=== PATIENT | male | born 1960 | race African-American/Black ===

== ENCOUNTER 2019-05-29 16:47 | Inpatient (IN) ==
[2019-05-29] MEDS ORDERED: Dextrose Gel 15 GM/37.5 ML TUBE PO PRN ×2 (20:30)
[2019-05-29] MEDS ORDERED: D5% in Water 1,000 ML IVC PRN (20:30)
[2019-05-29] MEDS ORDERED: *HR* Dextrose 50 % in Water (Syg) 50 ML SYRINGE IVP PRN (20:30)
[2019-05-29] MEDS ORDERED: *HR* HYDROcodone/Acet 5/325 mg TABLET PO PRN (20:30)
[2019-05-29] MEDS ORDERED: Naloxone 0.4 MG/ML INJ IVP PRN (20:30)
[2019-05-29] MEDS ORDERED: Acetaminophen 325 MG TABLET PO PRN (20:30)
--- NOTE | 2019-05-29 20:30 | Internal Med History&Physical ---
<Hannah Real Cuong - Last Filed: 05/29/19 22:41> Date of Encounter: 05/29/19 Time of Encounter: 20:00 Internal Medicine - H&P: HPI Chief complaint: osteomyelitis History of present illness: Mr. Carter is a 58 year old male with PMH of insulin dependent diabetes type 2, and peripheral neuropathy presents from [place] with wound on plantar surface of left hallux. Patient states he has had a chronic wound on the foot for about a year now which was on his way to healing and he is being followed by podiatry physician Dr. Campbell here at [facility]. Patient states he recently moved into a new place where he cleaned the tub with a bleach-type substance and took a shower. He believes the bleach may have torn down his skin and lead to the opening of his wound. He attempted to care for the wound within the past week with Dial soap, and keep The wound clean and dry although within the past few days patient noticed his foot becoming swollen. Patient noticed purulent drainage from the wound and it becoming malodorous. Patient also noticed increasing pain of the wound up to patient's de la cruz. Patient states the pain is about a 9 out of 10. Which prompted his visit to [place] ED. His last visit to outpatient podiatry was 05/14/19 which does indicated his wound contained granulation tissue. Patient is admitted for concerns of osteomyelitis. Past Med Surg Social Fam HX - Past Medical History Medical history: diabetes, hyperlipidemia, hypertension Additional medical history: neuropathy Psychiatric history: depression - Past Surgical History Surgical History: other (Tonsillectomy) - Social History Smoking Status: Current every day smoker Smokeless Tobacco Status: No Alcohol use: occasionally Drug use: none Internal Medicine - H&P: Meds Novolog Mix 70-30 Flexpen Syrn 5 - 10 units SQ ACHS 08/07/17 [History] Percocet 10-325 mg Tablet 1 tab PO Q6H PRN 08/07/17 [History] Vitamin D 08/07/17 [History] Insulin Lispro Protamin/Lispro [Humalog Mix 75-25 Vial] 45 unit SQ BID 08/08/17 [History] Albuterol Sulfate [Albuterol Inhaler] 1 puff IH PRN PRN 01/29/19 [History] Gabapentin [Neurontin] 600 mg PO TID 01/29/19 [History] Leucovorin/Pyridox/Mecobalamin [Folinic-Plus Caplet] 1 PO DAILY 01/29/19 [History] Losartan Potassium 100 mg PO DAILY 01/29/19 [History] Vit D2 60,000 50,000 units PO 2XW 01/29/19 [History] Amitriptyline HCl 50 mg PO HS 05/29/19 [History] DULoxetine [Cymbalta] 30 mg PO DAILY 05/29/19 [History] Sildenafil Citrate [Revatio] 20 mg PO PRN PRN 05/29/19 [History] Vitamin E 100 unit PO DAILY 05/29/19 [History] Allergy/AdvReac Type Severity Reaction Status Date / Time No Known Allergies Allergy Verified 05/29/19 13:42 All Systems PM: A 10-system review of systems was performed and is negative for pertinent findings except as documented above in the HPI. Review of systems: Constitutional: Denies Fever, Chills, Headache, Dizziness Respiratory: Denies Shortness of breath, Chronic cough, hemoptysis, Dyspnea at rest, or activity Cardiovascular: Denies Chest pain, Syncope, Peripheral edema , palpitations Gastrointestinal: Denies hematochezia, Abdominal pain, nausea, vomiting Genitourinary: Denies Painful urination, hematuria, urinary retention Endocrine: denies unintentional Significant weight changes Skin: Denies rashes, or unexplained bruising - Constitutional Vitals: Temp Pulse Resp BP Pulse Ox 97.8 F 85 16 145/98 85 05/29/19 19:52 05/29/19 19:52 05/29/19 19:52 05/29/19 19:52 05/29/19 19:52 Exam: Gen: alert/oriented, no acute distress. Head: atraumatic, normocephalic. ENT: no oropharyngeal erythema, mucous membranes moist, Neck: No thyromegaly appreciated. Neck supple no cervical lymphadenopathy. Resp: CTAB, no wheezing, rhonchi, or rhales. CV: RRR, Normal S1 and S2. No murmur, gallops, or rubs. GI/Abdominal exam: bowel sounds throughout,obese, soft, non-tender, non- distended; no hepatosplenomegaly Skin: no rashes, or bruising. Ext: plantar surface of L hallux contained 1 1/2cm wound with mild granulation tissue, malodorous with pustular drainage. Left foot edematous and tender up to mid de la cruz. sensation decreased in LE b/l, strength 5/5 b/l UE and LE. pulses +2/4 bilaterally UE and LE. Neuro: no focal deficits, cooperative with exam. - Assessment and Plan (1) Osteomyelitis Current Visit: Yes Status: Acute Assessment and plan: Patient is a 58Y male with Pmh of insulin dependent DM and peripheral neuropathy who presented to the ED at [place] with c/o wound infection. Patient has been dealing with a chronic wound on the dorsal aspect of his L hallux for about a year. This week the wound reopened and has become painful, purulent, and malodorous. Patient denies fevers, Headaches, nausea, vomiting, diarrhea, or myalgia. Due to this recent change in his wound there is concern for Osteomyelitis. Plan: - Obtain MRI of LT foot - Obtain bone biopsy of foot to confirm osteomyelitis infection. - Resume broad spectrum antibiotics (vancomycin) in a.m once bone biopsy has been completed. - Consult Podiatry as patient is a podiatry patient at [facility], and may need I/D of wound. - Will continue to monitor for leukocytosis or fever. - Obtain CBC, CMP in am. Qualifiers: Osteomyelitis type: other acute Osteomyelitis location: foot Laterality: left Qualified Code(s): M86.172 - Other acute osteomyelitis, left ankle and foot (2) Diabetes mellitus Current Visit: Yes Status: Acute Assessment and plan: Patient is currently an insulin dependent diabetic. Plan: - Will maintain blood glucose with SSI before and after meals. - NPO after midnight in case intervention is needed for infection. - Q6H Accucheck after midnight. - Q6H SSI after midnight while NPO (3) Hypertension Current Visit: Yes Status: Acute Assessment and plan: Continue Hypertensive medications: - Losartan 100mg Daily. Qualifiers: Hypertension type: essential hypertension Qualified Code(s): I10 - Essential (primary) hypertension (4) Depression Current Visit: Yes Status: Chronic Assessment and plan: Continue come medications: - Amitriptyline HCL 50mg PO HS - Duloxetine 30 mg PO Daily Qualifiers: Depression Type: major depressive disorder Major depression recurrence: recurrent Qualified Code(s): F33.0 - Major depressive disorder, recurrent, mild (5) DVT prophylaxis Current Visit: Yes Status: Acute Assessment and plan: Patient may need to undergo I&D for wound care. - SCDs for DVT prophylaxis. - Time Spent With Patient Total time spent is greater than 50% in coordination of care (as documented) at patient's floor/unit and/or counseling patient: <Sherry Hunt - Last Filed: 05/30/19 00:31> Date of Encounter: 05/30/19 Internal Medicine - H&P: HPI History of present illness: Mr. Carter is a 58 year old male All Systems PM: A 10-system review of systems was performed and is negative for pertinent findings except as documented above in the HPI. - Constitutional Vitals: Temp Pulse Resp BP Pulse Ox 98.3 F 88 16 110/68 93 05/29/19 23:05 05/29/19 23:05 05/29/19 23:05 05/29/19 23:05 05/29/19 23:05 - Time Spent With Patient Total time spent is greater than 50% in coordination of care (as documented) at patient's floor/unit and/or counseling patient: - Attending Attestation Patient seen and examined independently, including review of objective data including labs. I agree with plan of care as documented below by the resident with the following comments: 58-year-old male with uncontrolled insulin-dependent type 2 diabetes with peripheral neuropathy and chronic left hallux ulcer comes to the ED for acute worsening patient has had multiple episodes of oral antibiotic outpatient with intermittently improving the longest duration being 4/5 days. Patient reports worsening usually occurs after exposure to water.on examination: No mass, crepitus or pain out of proportion. Patient admitted for left foot wound with suspected osteomyelitis. ESR, CRP, MRI pending. Podiatry consultation for bone biopsy and thus held antibiotics for better yield.
[2019-05-29] MEDS ORDERED: Insulin LISPRO 300 UNITS/3 ML VIAL SQ SCH (20:38)
[2019-05-29] MEDS ORDERED: Insulin DETEMIR 100 UNIT/ML X5UNITS SQ SCH (21:00)
[2019-05-29] MEDS ORDERED: Gadolinium Contrast Agent (WT Based) IV PRN (21:52)
[2019-05-29 21:55] LABS: INR 1.1; Prothrombin Time 12.2 Seconds (9.4-12.1)
[2019-05-29] MEDS: Gabapentin 300 MG CAPSULE PO SCH (23:04)
[2019-05-30] MEDS: Insulin LISPRO 300 UNITS/3 ML VIAL SQ SCH ×5 (00:49→23:44)
[2019-05-30 05:48] LABS: Basophils # 0.1 K/mcL (0.0-0.2); Basophils % 0.9 %; Eosinophils # 0.2 K/mcL (0.0-0.6); Eosinophils % 3.2 %; Hematocrit 39.2 % (37.5-50.1); Hemoglobin 12.5 g/dL (12.9-16.9); Immature Granulocytes % 0.3 % (0-4); Lymphocytes # 2.4 K/mcL (0.6-4.6); Lymphocytes % 33.9 %; Mean Corpuscular HGB Conc 31.9 g/dL (31.6-35.5); Mean Corpuscular Volume 84.7 fL (83.0-100.0); Monocytes # 0.7 K/mcL (0.0-1.3); Monocytes % 10.3 %; Neutrophils # 3.6 K/mcL (1.6-8.9); Platelet Count 438 K/mcL (140-400); Red Blood Count 4.63 M/mcL (4.19-5.50); Red Cell Distribution Width 14.7 % (11.5-14.5); Segmented Neutrophils % 51.4 %
[2019-05-30 06:15] LABS: Alanine Aminotransferase 17 Units/L (7-52); Albumin 3.7 g/dL (3.5-5.7); Albumin/Globulin Ratio 1.1 (1.1-2.2); Alkaline Phosphatase 79 Units/L (34-104); Aspartate Amino Transferase 17 Units/L (13-39); BUN/Creatinine Ratio 15 (6-26); Bilirubin,Total 0.4 mg/dL (0.3-1.0); Blood Urea Nitrogen 13 mg/dL (6-20); Calcium 9.6 mg/dL (8.6-10.3); Carbon Dioxide 26 mEq/L (23-29); Chloride 98 mEq/L (98-107); Globulin 3.5 g/dL (2.4-3.5); Glucose 223 mg/dL (70-105); Osmolality,Calculated 289 (280-300); Potassium 4.1 mEq/L (3.5-5.1); Sodium 136 mEq/L (136-145); Total Protein 7.2 g/dL (6.4-8.9); eGFR For African Americans > 60 (> 60); eGFR For Non-African Americans > 60 (> 60)
--- NOTE | 2019-05-30 11:58 | Podiatry Consult Note ---
Date of Encounter: 05/30/19 Time of Encounter: 11:53 Assessment and Plan (1) Diabetic ulcer of toe Current visit: Yes Status: Acute Assessment: Sloan grade III ulceration to left great toe 05/14/19 VASQUEZ right 0.97 left 0.7 05/14/19 TCPO2 consistent with healing Wound cultures pending, prelim with few gram negative rods and gram positive cocci Malodorous CT of left foot suggestive for OM MRI showed OM of distal phalanx WBC 7.0, afebrile ESR 93, CRP 60 HGB A1C 10.7 Reports calf pain with squeeze Plan: Venous duplex stat, r/o dvt Vascular consultation, will plan for amputation if no vascular intervention planned Keep NPO Bedside debridement completed, see below Local wound care Tight glycemic control per primary team Informed consent obtained timeout performed. Patient placed in recumbent position. Left foot and ankle prepped and draped usual manner. Under sterile technique and using sterile instrumentation surgical excisional wound debridement was carried out with #15 scalpel blade and pickup to remove all devitalized tissue of the left hallux wound. No bleeding noted. Purulent drainage noted, slough noted.. Debridement was carried down to the subcutaneous tissue. Cleansed with 0.9 NS. Painted periwound with betadine. Covered with adaptic, 4x4 dry gauze, and kerlix. Secured with JULIO. Discussed left great toe amputation. Nature of the procedure, risks versus benefits, potential complications, consequences of surgery, and condition discussed. All questions and concerns addressed. Consent signed and placed in chart. Qualifiers: Diabetes mellitus type: type 2 Laterality: left Non-pressure ulcer stage: with fat layer exposed Qualified Code(s): E11.621 - Type 2 diabetes mellitus with foot ulcer; L97.522 - Non-pressure chronic ulcer of other part of left foot with fat layer exposed (2) Osteomyelitis Current visit: Yes Status: Suspected See above Qualifiers: Osteomyelitis type: subacute Osteomyelitis location: foot Laterality: left Qualified Code(s): M86.272 - Subacute osteomyelitis, left ankle and foot History of Present Illness Chief complaint: OM HPI: Mr. Carter is a 58 year old male who presented to the [facility] yesterday with complaints of purulent drainage from left diabetic ulcer. Patient is known to podiatry and follows with Dr. Campbell in wound care center. Briefly Mr. Carter is a 58-year-old man who states 1 month ago he took a bath in which bleach was in the tub. He reports he he does not believe other bleach was removed and has had an ulceration to left great toe ever since. Patient has been following in wound care center. Previous ABIs were completed right 0.97, left 0.7. TC PO2 levels were completed and showed consistent with healing. Patient states that about 3 days ago he began to have drainage and foul odor from wound. Denies any fevers, chills, nausea, vomiting, or diarrhea. Denies any chest pain, or shortness of breath. Reports calf pain. WBC 7.0, ESR 93, hemoglobin A1c 10.7, wound cultures obtained on 05/29/19 are still pending preliminary showed a few gram-positive cocci and gram-negative rods. Foot CT was suggestive for osteomyelitis. MRI showed osteomyelitis of first distal phalanx. Discussed possible surgical intervention. Patient is agreeable. No other questions or concerns at this time Past Med Surg Social Fam HX - Past Medical History Medical history: diabetes, hyperlipidemia, hypertension Additional medical history: neuropathy Psychiatric history: depression - Past Surgical History Surgical History: tonsillectomy - Social History Smoking Status: Current every day smoker Smokeless Tobacco Status: No Alcohol use: occasionally Drug use: none Medications and Allergies Cholecalciferol (Vitamin D3) [Vitamin D] 50,000 unit PO TUFR 08/07/17 [History] Oxycodone HCl/Acetaminophen [Percocet 10-325 mg Tablet] 1 tab PO Q6H PRN 08/07/17 [History] Insulin Lispro Protamin/Lispro [Humalog Mix 75-25 Vial] 45 unit SQ BID 08/08/17 [History] Albuterol Sulfate [Albuterol Inhaler] 1 puff IH Q4-6H PRN 01/29/19 [History] Gabapentin [Neurontin] 600 mg PO TID 01/29/19 [History] Leucovorin/Pyridox/Mecobalamin [Folinic-Plus Caplet] 1 tab PO DAILY 01/29/19 [History] Losartan Potassium 100 mg PO DAILY 01/29/19 [History] DULoxetine [Cymbalta] 30 mg PO DAILY 05/29/19 [History] Sildenafil Citrate [Revatio] 20 mg PO PRN PRN 05/29/19 [History] Vitamin E 100 unit PO DAILY 05/29/19 [History] Amitriptyline [Elavil] 50 mg PO HS PRN 05/30/19 [History] Insulin ASPART [Novolog Flexpen] 5 - 10 units SQ ACHS 05/30/19 [History] Allergy/AdvReac Type Severity Reaction Status Date / Time No Known Allergies Allergy Verified 05/30/19 14:19 All Systems Reviewed: The remainder of the systems were reviewed and are negative - Constitutional Constitutional: no fever(s) - Cardiovascular Cardiovascular: other (pedal ulcer), no chest pain - Respiratory Respiratory: no dyspnea - Musculoskeletal Musculoskeletal: numbness Physical Exam - Constitutional Vitals: Temp Pulse Resp BP Pulse Ox 98.9 F 76 15 145/94 97 05/30/19 11:19 05/30/19 11:19 05/30/19 11:19 05/30/19 11:05/30/19 11:19 Exam: Constitiutional: Alert and oriented x 3. Well nourished. No acute distress noted Vascular: 1/4 DP/PT LLE, CFT <3 sec to all digits LLE, warm to warm from tibia to toes LLE, calf pain with squeeze LLE Neurologic: Absent sensation to touch, normal plantar response Dermatologic: Sloan stage III ulcer noted to left hallux, maloudorus, purulent drainage, no lymphangitis, no cellulitis noted Musculoskeletal: 4/5 muscle strength and normal tone LLE. Results - Labs Result Diagrams: 05/30/19 04:23 05/30/19 04:23 Labs: Abnormal lab results Hgb 12.5 g/dL (12.9-16.9) L 05/30/19 04:23 MCH 27.0 pg (28.0-33.3) L 05/30/19 04:23 RDW 14.7 % (11.5-14.5) H 05/30/19 04:23 Plt Count 438 K/mcL (140-400) H 05/30/19 04:23 ESR 93 mm/hr (0-10) H 05/30/19 04:23 PT 12.2 Seconds (9.4-12.1) H 05/29/19 20:59 Glucose 223 mg/dL (70-105) H 05/30/19 04:23 C-Reactive Protein 60 mg/L (Less than 10) H 05/30/19 04:23 H & H 05/30/19 Range/Units 04:23 Hgb 12.5 L (12.9-16.9) g/dL Hct 39.2 (37.5-50.1) % All other labs normal. - Diagnostic results Ankle/Foot MRI: report reviewed Ankle/Foot CT: report reviewed Consult Discharge Plan - Plan Referrals: Cody Pastrana MD [Primary Care Provider] - 06/17/19 3:15 pm Derrick Joyner MD [Partnered Physician] - 06/18/19 2:45 pm
[2019-05-30] MEDS: *HR* OxyCODONE/APAP 10/325 TABLET PO PRN ×2 (12:33→19:43)
[2019-05-30] MEDS: Nicotine 14 MG PATCH.TD24 TD SCH (14:36)
[2019-05-30] MEDS ORDERED: *HR* Heparin 10,000 UNIT/10 ML VIAL ONE ×2 (14:36→15:58)
[2019-05-30] MEDS ORDERED: 0.9 % Sodium Chloride 1,000 ML ONE (14:37)
[2019-05-30] MEDS ORDERED: Isovue-300 150 ML INFUS..BTL ONE (14:37)
[2019-05-30] MEDS ORDERED: *HR* FentaNYL (PF) 100 MCG/2 ML VIAL ONE ×2 (14:56→15:44)
[2019-05-30] MEDS ORDERED: *HR* Midazolam HCl 2 MG/2 ML VIAL ONE (14:56)
--- NOTE | 2019-05-30 15:01 | Vascular/Endovasc Consult Note ---
Date of Encounter: 05/30/19 Time of Encounter: 14:30 Assessment and Plan (1) PAD (peripheral artery disease) Current Visit: Yes Status: Chronic Patient has clinical findings suggesting bilateral superficial femoral artery disease. Because of the worsening status of the wound I recommended angiography and possible endovascular intervention for the left lower extremity. My suspicion is that he has a left superficial femoral artery occlusion. After revi ew of the issue the patient understands I recommendation and wishes to proceed. In order to expedite his medical care and to better control his foot infection We will make arrangements for his angiogram this afternoon. (2) Diabetic ulcer of toe Current Visit: Yes Status: Acute Patient has ulceration of the left first toe of unknown duration. Qualifiers: Diabetes mellitus type: type 2 Laterality: left Non-pressure ulcer stage: with fat layer exposed Qualified Code(s): E11.621 - Type 2 diabetes mellitus with foot ulcer; L97.522 - Non-pressure chronic ulcer of other part of left foot with fat layer exposed - History of Present Illness Consult date: 05/30/19 Consult reason: PAD/left toe wound Chief complaint: left toe wound History of present illness: Mr. Carter is a 58 year old male who was admitted yesterday via the emergency room for a left foot infection. The patient has a somewhat long history of injury and wound to the left first toe. As best I can determine this area was recently reinjured and for the past week the patient has had increasing symptoms. The patient has seen Dr. Campbell in the past. He has known diabetes. It is unknown as to what level his hemoglobin A1c is at the time of this dictation. The patient relates the problems to his left first toe going back to about a year ago when he was moving a refrigerator. He is also had experiences of having his foot and a bishop [place] when washing his dog and also having bleach and other material in a bathtub when he was taken a shower. The patient gives a somewhat indeterminate history for pre-morbid claudication. He has not had any previous endovascular or open surgical therapy for lower extremity vascular disease. The patient had noninvasive testing earlier this month which demonstrated an ankle-brachial index on the left of 0.7. Past Med Surg Social Fam HX - Past Medical History Medical history: diabetes, hyperlipidemia, hypertension Additional medical history: neuropathy Psychiatric history: depression - Past Surgical History Surgical History: tonsillectomy - Social History Smoking Status: Current every day smoker Smokeless Tobacco Status: No Alcohol use: occasionally Drug use: none Medications and Allergies Cholecalciferol (Vitamin D3) [Vitamin D] 50,000 unit PO TUFR 08/07/17 [History] Oxycodone HCl/Acetaminophen [Percocet 10-325 mg Tablet] 1 tab PO Q6H PRN 08/07/17 [History] Insulin Lispro Protamin/Lispro [Humalog Mix 75-25 Vial] 45 unit SQ BID 08/08/17 [History] Albuterol Sulfate [Albuterol Inhaler] 1 puff IH Q4-6H PRN 01/29/19 [History] Gabapentin [Neurontin] 600 mg PO TID 01/29/19 [History] Leucovorin/Pyridox/Mecobalamin [Folinic-Plus Caplet] 1 tab PO DAILY 01/29/19 [History] Losartan Potassium 100 mg PO DAILY 01/29/19 [History] DULoxetine [Cymbalta] 30 mg PO DAILY 05/29/19 [History] Sildenafil Citrate [Revatio] 20 mg PO PRN PRN 05/29/19 [History] Vitamin E 100 unit PO DAILY 05/29/19 [History] Amitriptyline [Elavil] 50 mg PO HS PRN 05/30/19 [History] Insulin ASPART [Novolog Flexpen] 5 - 10 units SQ ACHS 05/30/19 [History] Allergy/AdvReac Type Severity Reaction Status Date / Time No Known Allergies Allergy Verified 05/30/19 14:19 All Systems Review: The remainder of the systems were reviewed and are negative Exam Vital Signs, Last 4 Hours Temp Pulse Resp BP Pulse Ox 05/30/19 11:19 98.9 F 76 15 145/94 97 General: Present: Conversant, No Apparent Distress, Well developed, Well nourished HEENT: Present: Atraumatic, Normocephaly, Trachea midline Neck: Absent: JVD, Left Carotid bruit, Right Carotid bruit, Midline deformity Cardiac: Present: Reg Rate and Rhythm, Normal S1 and S2, No Murmur. Absent: Irregular Rhythm Lungs: Present: Normal Breath Sounds, No Wheeze, Rales, Rhonchi Neuro: Present: Alert and responsive, No focal deficits noted, Cranial nerves grossly intact Abdomen: Present: Soft, Non-tender, Other (Obese). Absent: Masses Vascular: Present: Pulse, absent (I do not palpate popliteal or pedal pulses on either side), Pulse, normal (Patient has palpable bilateral femoral pulses without bruit), Other (Patient has a foul order and drainage from the left first toe.). Absent: Bruit (There are no femoral or popliteal masses or bruits), Cyanosis, Edema Skin: Present: No rashes noted on visualized skin Consult Discharge Plan - Plan Referrals: Cody Pastrana MD [Primary Care Provider] - 06/17/19 3:15 pm Derrick Joyner MD [Partnered Physician] - 06/18/19 2:45 pm
--- NOTE | 2019-05-30 15:02 | Pre-Sedation Evaluation ---
Pre-sedation evaluation - Pre-sedation checklist Date of procedure: 05/30/19 Procedure: Peripheral angiogram Recent Vitals: Last Vital Signs Temp 98.9 F 05/30/19 11:19 Pulse 76 05/30/19 11:19 Resp 15 05/30/19 11:19 BP 145/94 05/30/19 11:19 Pulse Ox 97 05/30/19 11:19 Previous reaction to sedatives/anesthetics: No Possible difficult airway: No ASA Classification *see protocol: CLASS III-Severe systemic disease Plan of Care: Pt appropriate candidate for procedure/moderate/conscious sedation, Risks/benefits of procedure/sedation discussed w/ patient/family
[2019-05-30] MEDS: Gabapentin 300 MG CAPSULE PO SCH ×3 (15:39→21:13)
--- NOTE | 2019-05-30 16:01 | Procedure Note ---
Date of procedure: 05/30/19 Pre-op diagnosis: pad/left toe wound Post-op diagnosis: same Procedure: Abdominal aortogram Aortogram with bilateral lower extremity runoff Standard and drug coated balloon angioplasty of left superficial femoral artery occlusion Anesthesia: MAC Surgeon: Derrick Joyner Was there an engineering inspection assistant present: No Estimated blood loss (cc): 0 Specimen: 0 Condition: stable Disposition: floor (Patient will require 3 months of Plavix therapy. Initial dose given in catheter lab today.)
--- NOTE | 2019-05-30 16:37 | Internal Med Progress Note ---
Hospitalist Progress Note - Encounter Date of Encounter: 05/30/19 Time of Encounter: 16:31 - Subjective Interval History: No acute events overnight. Patient had bedside debridement of left big toe wound. He requests to be discharged soon so he can go back home to take care of his dog. I informed patient that I would discharge him as soon as it is safe to do so. He denies fever, nausea, vomiting and chills. - Exam Vitals: Temp Pulse Resp BP Pulse Ox 37.2 C 76 15 145/94 97 05/30/19 11:19 05/30/19 11:19 05/30/19 11:05/30/19 11:05/30/19 11: Exam: GENERAL: Not in distress. Alert and Oriented HEENT: EOMI, PERRLA MOUTH: Good oral hygiene NECK:No JVD, No lymph nodes. CHEST AND LUNGS: Normal breath sounds, no wheezes or crackles HEART: S1 and S2 normal, no murmurs ABDOMEN: Soft, nontender, no organomegaly SKIN: Normal color, no rashes, no lesions EXTREMITIES: Clean Surgical dressing over left foot NEUROLOGICAL: Normal cognition, normal motor and sensory exam. - Assessment and Plan (1) Diabetic ulcer of toe Current Visit: Yes Status: Acute Assessment and Plan: Patient presented with a large necrotic ulcer at the plantar surface of his left hallux. Podiatry has seen and done bedside debridement. MRI findings consistent with osteomyelitis Patient might have a possible left toe amputation. Podiatry and vascular on board. (2) Osteomyelitis Current Visit: Yes Status: Suspected Assessment and Plan: Foot MRI performed revealed osteomyelitis of the first distal phalanx with erosive changes of the first distal phalanx tuft Podiatry considering possible amputation of the left hallux Vascular consulted to evaluate lower extremity perfusion prior to procedure. (3) Diabetes mellitus Current Visit: Yes Status: Acute Assessment and Plan: Poorly controlled diabetes. HbA1c of 10.7 High-dose insulin sliding scale We will change premix insulin to ultra long-acting insulin during hospital stay Accu-Cheks Patient counseled on importance of compliance with medications. (4) Hypertension Current Visit: Yes Status: Acute (5) Obesity (BMI 30.0-34.9) Current Visit: Yes Status: Acute Assessment and Plan: Patient counseled on weight loss options available. (6) DVT prophylaxis Current Visit: Yes Status: Acute Assessment and Plan: SCD - Time Spent with Patient Total time spent is greater than 50% in coordination of care (as documented) at patient's floor/unit and/or counseling patient: Internal Medicine: Result - Labs CBC & Chem 7: 05/30/19 04:23 05/30/19 04:23 Labs: Short CBC 05/30/19 Range/Units 04:23 WBC 7.0 (4.3-11.1) K/mcL Hgb 12.5 L (12.9-16.9) g/dL Hct 39.2 (37.5-50.1) % Plt Count 438 H (140-400) K/mcL Neutrophils # 3.6 (1.6-8.9) K/mcL BMP 05/30/19 04:23 Sodium 136 Potassium 4.1 Chloride 98 Carbon Dioxide 26 BUN 13 Creatinine 0.85 Glucose 223 H Calcium 9.6 Liver Function 05/30/19 Range/Units 04:23 Total Bilirubin 0.4 (0.3-1.0) mg/dL AST 17 (13-39) Units/L ALT 17 (7-52) Units/L Alkaline Phosphatase 79 (34-104) Units/L Albumin 3.7 (3.5-5.7) g/dL - ABG Interpretation ABG results: PT/INR, D-dimer PT 12.2 Seconds (9.4-12.1) H 05/29/19 20:59 - Impressions Impressions Foot MRI 05/30/19 09:59 IMPRESSION: Large soft tissue ulceration involving the tip of the 1st digit extending to the level of bone with surrounding cellulitis and subcutaneous edema extending to the dorsal aspect of the foot. Osteomyelitis of the 1st distal phalanx with erosive changes of the 1st distal phalanx tuft. D/ / 05/30/2019 10:10:30 Cameron Pena MD / [facility] Interpreting Provider: Cameron Pena MD Consult Discharge Plan - Plan Referrals: Cody Pastrana MD [Primary Care Provider] - 06/17/19 3:15 pm Derrick Joyner MD [Partnered Physician] - 06/18/19 2:45 pm (1) Diabetic ulcer of toe Qualifiers: Diabetes mellitus type: type 2 Laterality: left Non-pressure ulcer stage: with fat layer exposed Qualified Code(s): E11.621 - Type 2 diabetes mellitus with foot ulcer; L97.522 - Non-pressure chronic ulcer of other part of left foot with fat layer exposed (2) Osteomyelitis Qualifiers: Osteomyelitis type: subacute Osteomyelitis location: foot Laterality: left Qualified Code(s): M86.272 - Subacute osteomyelitis, left ankle and foot (3) Diabetes mellitus Qualifiers: Diabetes mellitus type: type 2 Diabetes mellitus senior living insulin use: unspecified senior living insulin use status Diabetes mellitus complication status: with skin complications Diabetes mellitus complication detail: with foot ulcer Qualified Code(s): E11.621 - Type 2 diabetes mellitus with foot ulcer; L97.509 - Non-pressure chronic ulcer of other part of unspecified foot with unspecified severity (4) Hypertension Qualifiers: Hypertension type: essential hypertension Qualified Code(s): I10 - Essential (primary) hypertension
--- NOTE | 2019-05-30 17:03 | Invasive Diagnostic Lab Proc ---
Name: Manuel Carter Date of Study: 05/30/2019 Date: 1960 Ht: 193.0 in Medical Record#: [id number] Age: 58 Wt: 115 lb Gender: Male BSA: 2.45 Order #: [id number] BMI: 30.87 Physicians Performing MD: Derrick Joyner MD, FACS Referring MD: Referring MD: Staff Name Position Time In Kimberly Lauian RT (R) Scrub Jennifer Harrison RT (R) Monitor Xavier Nowak RN Laundry Machine Operator Indications Non-healing Ulcer Procedures Performed AORTOGRAPHY EXT Bilat S&I AORTOGRAPHY, ABDOMINAL S&I FEM/POPL REVAS W/TLA Pre-Procedure Checklist Informed consent is complete signed and on chart. H&P is on chart. ID band is on and ID verified with patient. Patient NPO for procedure The procedure was described for the patient and questions were answered. Blood Pressure: 132/89 ECG is on chart. Rhythm: NSR Plan of Care Patient will tolerate the procedure without complications. Adequate level of comfort will be maintained. Hemodynamics will remain stable Patient will recover from procedure without complications. Respiratory function will be maintained. Cardiac rhythm will remain stable. Patient temperature will be maintained. Patient and/or family have verbalized understanding of the procedure. Patient Education Chief Complaint/Reason for Test: Peripheral angiogram Developmental Category: Adult (18-64 years) Learning Barriers: None Education Needs: Procedure Education Method: Verbal Information Taught: Peripheral angiogram Educational Evaluation: Able to repeat information Intravenous Access Time IV Size Location DC'd Fluid/Drip Rate Units RN 15:03 20g 1 /" Patent On Arrival Lt Hand 0.9NaCl 25 ml/hr Allergies No Known Allergies steroids Vital Signs Time BP Systolic BP Diastolic HR O2 Sats ASA 03:06 PM 132 89 69 100 03:06 PM 03:21 PM 03:37 PM 03:01 PM 137 90 73 98 03:06 PM 132 89 79 100 03:11 PM 136 80 69 100 03:17 PM 135 75 74 100 03:21 PM 147 87 67 100 03:26 PM 140 92 64 100 03:31 PM 144 89 66 100 03:36 PM 137 88 67 100 03:41 PM 139 89 67 100 03:46 PM 134 78 63 93 03:52 PM 131 93 64 100 04:00 PM 127 89 71 95 04:27 PM 144 88 88 94 04:45 PM 140 95 85 98 Procedure Medications Time Medication Dose Units Method Route 03:04 PM Oxygen 2 L/min nasal cannula 03:05 PM Versed 1 mg Intravenous 03:10 PM Fentanyl 50 mcg Intravenous 03:12 PM Versed 1 mg Intravenous 03:13 PM Lidocaine 2% 10 ml Subcutaneous 03:32 PM Heparin 5000 units Intravenous 03:34 PM Fentanyl 50 mcg Intravenous 03:44 PM Fentanyl 50 mcg Intravenous 03:54 PM Plavix 150 mg Orally 03:58 PM Heparin 1000 units Intravenous ASA Classification: CLASS III- Severe systemic disease (i.e. prior AMI, diabetes with vascular complications, morbid obesity) Shreya Score Preprocedure Postprocedure Activity 2- Moves 4 extremities sustained head lift Activity 2- Moves 4 extremities sustained head lift Circulation 2- SBP +/= 20 points of pre-anesthetic level Circulation 2- SBP +/= 20 points of pre-anesthetic level Consciousness 2- Awake and alert oriented x 3 Consciousness 2- Awake and alert oriented x 3 O2 Saturation 2- Able to maintain O2 satruation of 92% on room air O2 Saturation 2- Able to maintain O2 satruation of 92% on room air Respiratory 2- Able to deep breathe and cough well Respiratory 2- Able to deep breathe and cough well Total Score 10 Total Score 10 Contrast: Isovue 300- 150ml Contrast Amount: 100 ml Fluoro Dose: 266 mGy Activated Clotting Time Time Drawn ACT (sec) 03:57 PM 188 Procedure Log Time Note Entered By 03:04 PM Pt arrived to dairy lab technician 1 at 15:04 [email or web address] 03:04 PM Physician arrived 15:04 oparker 03:04 PM Parth and donald completed [email or web address] 03:04 PM Sign in performed according to hospital policy. [email or web address] 03:04 PM Procedure start 15:04 oparker 03:04 PM ASA Class CLASS III- Severe systemic disease (i.e. prior AMI, diabetes with vascular complications, morbid obesity) oparker 03:04 PM Vic Lau RT (R) Position: Scrub Time in: 15:04 oparker 03:04 PM Jennifer Harrison RT (R) Position: Monitor Time in: 15:04 oparker 03:04 PM Xavier Nowak RN Position: Laundry Machine Operator Time in: 15:04 oparker 03:04 PM Case delayed: No oparker 03:04 PM Hair removed from procedure site in holding area using clippers. Bilateral groin prepped with Chloraprep by Xavier Nowak RN, then patient was draped. Skin intact. [email or web address] 03:04 PM 15:04 Oxygen at 2 L/min per nasal cannula by Xavier Nowak RN 03:05 PM 15:05 Versed 1 mg Intravenous Given by Xavier Nowak RN 03:06 PM Time: 15:06 Is patient comfortable and pain free?: Yes [email or web address] 03:06 PM Time: 15:06LOC: 4 = Oriented but drowsy [email or web address] 03:07 PM Patient charges- Angio tray pack, Pulse Oximetry and ACIST tubing and transducer [email or web address] 03:10 PM 15:10 Fentanyl 50 mcg Intravenous Given by Xavier Nowak RN 03:11 PM Time out perfomed [email or web address] 03:12 PM 15:12 Versed 1 mg Intravenous Given by Xavier Nowak RN 03:13 PM 15:13 10 ml Lidocaine 2% to right groin Subcutaneous Given By Derrick Joyner MD, FACS [email or web address] 03:13 PM Access obtained in the right femoral artery by percutaneous puncture. 5 Fr. 10 cm Terumo [place] sheath placed in right femoral artery [email or web address] 03:13 PM 0.035 145cm J-wire wire utilized to assist with catheter placement [email or web address] 03:13 PM 5Fr Short pigtail catheter inserted over the wire [email or web address] 03:14 PM 3 mls contrast injected into Abd AO. [email or web address] 03:14 PM Abdominal aorta angiography performed in AP contrast injected 10/25 mls. [email or web address] 03:16 PM Catheter repositioned for runoff. [email or web address] 03:17 PM Setting up for stepping [email or web address] 03:17 PM Abdominal angiogram with runoff completed: 6 ml/sec for a total of 60 mls [email or web address] 03:21 PM Time: 15:06LOC: 4 = Oriented but drowsy [email or web address] 03:21 PM Time: 15:06 Is patient comfortable and pain free?: Yes [email or web address] 03:22 PM Physician reviewing films. [email or web address] 03:22 PM Catheter removed [email or web address] 03:22 PM 5Fr Omniflush catheter inserted over the wire [email or web address] 03:24 PM Catheter removed [email or web address] 03:25 PM Sheath exchanged for a 6 Fr 45 cm Terumo Destination sheath inserted into right femoral artery [email or web address] 03:25 PM Guide wire removed intact [email or web address] 03:25 PM 0.035 Glidewire Angled 260cm guidewire advanced to target vessel. [email or web address] 03:26 PM 5Fr 100cm Glidecath Angled-Taper guide catheter advanced to target vessel [email or web address] 03:29 PM Guide wire removed intact [email or web address] 03:29 PM 0.014 [place] 14, 30 gram 300cm guidewire advanced to target vessel. [email or web address] 03:30 PM Guide wire removed intact [email or web address] 03:30 PM Louisa wire re-inserted. [email or web address] 03:31 PM 3 mls contrast injected into Lt Tibial arteries. [email or web address] 03:32 PM 15:32 Heparin 5000 units Intravenous by Xavier Nowak RN [email or web address] 03:34 PM 15:34 Fentanyl 50 mcg Intravenous Given by Xavier Nowak RN [email or web address] 03:36 PM Inflation device [email or web address] 03:36 PM Guide catheter removed intact [email or web address] 03:36 PM 4 mm x 150 mm Wheat Buyer balloon catheter placed into left superficial femoral [email or web address] 03:37 PM Time: 15:21 Is patient comfortable and pain free?: Yes [email or web address] 03:37 PM Time: 15:21LOC: 4 = Oriented but drowsy [email or web address] 03:38 PM Balloon inflated @ 12 reshma for 60 seconds [email or web address] 03:40 PM Balloon removed intact [email or web address] 03:40 PM 3 mls contrast injected into Lt distal SFA. [email or web address] 03:42 PM 6 mm x 150 mm Medtronic drug coated balloon placed into right superficial femoral [id number] [email or web address] 03:44 PM Balloon inflated @ 10 reshma for 180 seconds [email or web address] 03:44 PM 15:44 Fentanyl 50 mcg Intravenous Given by Xavier Nowak RN [email or web address] 03:48 PM Balloon removed intact [email or web address] 03:48 PM 3 mls contrast injected into Lt SFA. [email or web address] 03:49 PM Sheath pulled back [email or web address] 03:49 PM Guide wire removed intact [email or web address] 03:51 PM Procedure completed at 15:51 [email or web address] 03:52 PM Sign Out completed: Radiation Dose 266.13 mGy Fluoro Time: 6.0 minutes. Isovue 300- 150ml contrast 100 ml given by Derrick Joyner MD, FACS. Complications: None. Confirmed administered medications:Yes Sedation minutes 45 [email or web address] 03:52 PM Isovue 300- 150ml,1 bottle(s) used. [email or web address] 03:52 PM Time: 15:37LOC: 4 = Oriented but drowsy [email or web address] 03:52 PM Time: 15:37 Is patient comfortable and pain free?: Yes [email or web address] 03:52 PM Sheath left in place to be pulled on floor/holding areaV+Pad [email or web address] 03:52 PM Estimated Blood Loss: minimal [email or web address] 03:52 PM Post Blood Pressure: 131/93 [email or web address] 03:52 PM Post EKG: NSR [email or web address] 03:52 PM 15:52 Post Pulses: Lt DP/PT Doppler. [email or web address] 03:52 PM Information taught: Peripheral angiogram and PLATEMAN [email or web address] 03:52 PM Education needs: Procedure, Plan of Care, and Disease Process [email or web address] 03:53 PM Learning barriers: None [email or web address] 03:53 PM Education methods: Verbal [email or web address] 03:53 PM Education evaluation: Able to repeat information [email or web address] 03:53 PM Patient pain level 0/10 [email or web address] 03:53 PM Site status No bleeding/hematoma - Rt Groin as reported by Vic Lau RT (R) at 15:53 [email or web address] 03:53 PM Opsite applied [email or web address] 03:53 PM Complications: None [email or web address] 03:53 PM Family placed in Not available. [email or web address] 03:54 PM Time: 15:54 Plavix 150 mg Orally Given by Xavier Nowak RN [email or web address] 03:00 PM Recorded ECG: HR=69 Condition=Condition 1 03:00 PM PVIStat 03:00 PM Vitals capture started with the following parameters, Patient=Adult, Interval=5 min, Initial Ycwyfcav=560 mmHg, Deflation Rate=5 mmHg, Cuff placed on Left Arm 03:01 PM HR=73 bpm, MIMH=463/90 mmhg, SpO2=98.0 %, Resp=16 B/min, Comment=NSR 03:06 PM HR=79 bpm, KKCY=590/89 mmhg, SjM4=062.0 %, Resp=21 B/min, Comment=NSR 03:11 PM HR=69 bpm, PRXI=195/80 mmhg, DcW9=663.0 %, Resp=11 B/min, Comment=NSR 03:14 PM Recorded ECG: HR=68 Condition=Condition 1 03:17 PM HR=74 bpm, VIOS=778/75 mmhg, SkL5=523.0 %, Resp=23 B/min, Comment=NSR 03:21 PM HR=67 bpm, YOHT=781/87 mmhg, DjP4=399.0 %, Resp=9 B/min, Comment=NSR 03:26 PM HR=64 bpm, OHSO=478/92 mmhg, FjT1=092.0 %, Resp=13 B/min, Comment=NSR 03:31 PM HR=66 bpm, ZBWW=448/89 mmhg, QsD6=139.0 %, Resp=10 B/min, Comment=NSR 03:36 PM HR=67 bpm, UJTO=903/88 mmhg, OeF6=716.0 %, Resp=12 B/min, Comment=NSR 03:41 PM HR=67 bpm, KOSY=905/89 mmhg, SrP3=685.0 %, Resp=14 B/min, Comment=NSR 03:42 PM Recorded ECG: HR=69 Condition=Condition 1 03:46 PM HR=63 bpm, AZEP=868/78 mmhg, SpO2=93.0 %, Resp=22 B/min, Comment=NSR 03:49 PM Recorded ECG: HR=65 Condition=Condition 1 03:52 PM HR=64 bpm, INUD=904/93 mmhg, BkT2=672.0 %, Resp=15 B/min 03:56 PM Delay to floor: Bed availability [email or web address] 03:57 PM Isovue 300- 150ml contrast 100 ml given by Der[facility] Joyner MD, [email or web address] 03:57 PM Radiation Dose 266.13 mGy [email or web address] 03:59 PM 15:58 Heparin 1000 units Intravenous by Xavier Nowak RN [email or web address] 03:59 PM Report given to Eden MEDRANO. Pt taken to Holding room, Room # 3 15:59 [email or web address] 03:59 PM Patient out of room 15:59 [email or web address] 04:00 PM Diagram Region: Lower Extremity Arteries Anatomical Region: LE-[id number]% Lesion in Distal Left Superficial Femoral Intervention done: 1 (1=yes, 0=no) [email or web address] 04:00 PM [email or web address] 04:27 PM Patient c/o back pain 04/19. Patient given [place] 5/325 at 1627 per Rianna Raines RN [email or web address] 04:50 PM Report called to RN on 2N per Hilary Wolfe RN [email or web address] 04:56 PM Patient transported to 2N per Hilary Wolfe RN mprater Peripheral Anatomy Vessel Pathology Lesion Stenosis Aneurysm Diameter Thrombus Type Left Superficial Femoral Lesion 100 Peripheral Intervention Anatomical Region:LE-Art Vessel Segment:Undefined Bookmark: [email or web address] Pathology Type:Lesion Pre-Stenosis:100 Post Procedure Information Blood Pressure: 131/93 mmHg Rhythm: NSR Post procedure instructions given Site Checks Time Location Status Staff Sheath In? Note 3:53:00 PM Rt Groin No bleeding/hematoma Vic Lau RT (R) 05/30/2019 4:11:00 PM Rt Groin No bleeding/ No Hematoma Hilary Wolfe RN 05/30/2019 4:26:00 PM Rt Groin No bleeding/ No Hematoma Rianna Raines RN 05/30/2019 4:45:00 PM Rt Groin No bleeding/ No Hematoma Hilary Wolfe RN Pulses Time Site Pre Procedure Post Procedure Note 05/30/2019 3:03:00 PM Bilateral radial 2+ 05/30/2019 3:08:00 PM Lt DP/PT Doppler 05/30/2019 3:08:00 PM Rt DP/PT 1+ 1+ 2:52:00 PM Lt DP/PT Doppler Updated by Eden Koroma RN on 05/30/2019 4:57:12 PM Eden Koroma RN electronically signed on 05/30/2019 4:57:39 PM with status of Final
[2019-05-30] MEDS ORDERED: *HR* Atropine Sulfate 1 MG/10 ML SYRINGE ONE (20:05)
[2019-05-30] MEDS: Insulin DETEMIR 100 UNIT/ML X5UNITS SQ SCH (21:13)
[2019-05-31] MEDS: Insulin LISPRO 300 UNITS/3 ML VIAL SQ SCH ×4 (06:10→20:59)
[2019-05-31] MEDS: Nicotine 14 MG PATCH.TD24 TD SCH (07:58)
[2019-05-31] MEDS: Gabapentin 300 MG CAPSULE PO SCH ×3 (07:58→20:58)
[2019-05-31] MEDS: *HR* OxyCODONE/APAP 10/325 TABLET PO PRN ×2 (07:58→20:58)
--- NOTE | 2019-05-31 10:30 | Internal Med Progress Note ---
Hospitalist Progress Note - Encounter Date of Encounter: 05/31/19 Time of Encounter: 07:30 - Subjective Interval History: No acute events overnight. Patient denies fever, chills and pain in his left foot. - Exam Vitals: Temp Pulse Resp BP Pulse Ox 36.9 C 85 18 141/91 99 05/31/19 07:28 05/31/19 07:28 05/31/19 07:28 05/31/19 07:28 05/31/19 07:28 Exam: GENERAL: Not in distress. Alert and Oriented HEENT: EOMI, PERRLA MOUTH: Good oral hygiene NECK:No JVD, No lymph nodes. CHEST AND LUNGS: Normal breath sounds, no wheezes or crackles HEART: S1 and S2 normal, no murmurs ABDOMEN: Soft, nontender, no organomegaly SKIN: Normal color, no rashes, no lesions EXTREMITIES: Clean Surgical dressing over left foot NEUROLOGICAL: Normal cognition, normal motor and sensory exam. - Assessment and Plan (1) Diabetic ulcer of toe Current Visit: Yes Status: Acute Assessment and Plan: Had bedside debridement yesterday MRI findings consistent with osteomyelitis Podiatry planning for possible digit amputation on Sunday Was seen by Vascular yesterday; had uneventful balloon angioplasty of left superficial femoral artery occlusion. (2) Osteomyelitis Current Visit: Yes Status: Suspected Assessment and Plan: Plan as above (3) Diabetes mellitus Current Visit: Yes Status: Acute Assessment and Plan: Poorly controlled diabetes. BG 187 this morning. HbA1c of 10.7 High-dose insulin sliding scale Started on Insulin determir Accu-Cheks Patient counseled on importance of compliance with medications. (4) Hypertension Current Visit: Yes Status: Acute Assessment and Plan: On home meds (5) Obesity (BMI 30.0-34.9) Current Visit: Yes Status: Acute Assessment and Plan: Patient counseled on weight loss options available. (6) DVT prophylaxis Current Visit: Yes Status: Acute Assessment and Plan: SCD - Time Spent with Patient Total time spent is greater than 50% in coordination of care (as documented) at patient's floor/unit and/or counseling patient: Internal Medicine: Result - Labs CBC & Chem 7: 05/30/19 04:23 05/30/19 04:23 - ABG Interpretation ABG results: PT/INR, D-dimer PT 12.2 Seconds (9.4-12.1) H 05/29/19 20:59 Consult Discharge Plan - Plan Referrals: Cody Pastrana MD [Primary Care Provider] - 06/17/19 3:15 pm Derrick Joyner MD [Partnered Physician] - 06/18/19 2:45 pm (1) Diabetic ulcer of toe Qualifiers: Diabetes mellitus type: type 2 Laterality: left Non-pressure ulcer stage: with fat layer exposed Qualified Code(s): E11.621 - Type 2 diabetes mellitus with foot ulcer; L97.522 - Non-pressure chronic ulcer of other part of left foot with fat layer exposed (2) Osteomyelitis Qualifiers: Osteomyelitis type: subacute Osteomyelitis location: foot Laterality: left Qualified Code(s): M86.272 - Subacute osteomyelitis, left ankle and foot (3) Diabetes mellitus Qualifiers: Diabetes mellitus type: type 2 Diabetes mellitus exterminator helper insulin use: unspecified longterm insulin use status Diabetes mellitus complication status: with skin complications Diabetes mellitus complication detail: with foot ulcer Qualified Code(s): E11.621 - Type 2 diabetes mellitus with foot ulcer; L97.509 - Non-pressure chronic ulcer of other part of unspecified foot with unspecified severity (4) Hypertension Qualifiers: Hypertension type: essential hypertension Qualified Code(s): I10 - Essential (primary) hypertension
[2019-05-31] MEDS ORDERED: Vancomycin (wt based) 1,000 MG VIAL IV SCH (14:00)
--- NOTE | 2019-05-31 14:00 | Vascular/[facility] Progress Note ---
Date of Encounter: 05/31/19 Time of Encounter: 13:58 - Assessment and plan (1) PAD (peripheral artery disease) Current Visit: Yes Status: Chronic Patient is postprocedure day #1 following an angiogram with left superficial femoral artery balloon angioplasty. Patient has had an excellent result with improvement of perfusion to left foot. Patient is now on Plavix 75 mg a day. We would ask that he continue this medication for a total of 90 days following angioplasty. I've asked the patient to return to see me in my clinic in 3 weeks. (2) Diabetic ulcer of toe Current Visit: Yes Status: Acute Patient has ulceration of the left first toe of unknown duration. Patient continues to have a foul odor from the left first toe wound. Patient will be started on antibiotics today per the hospitalist service. Qualifiers: Diabetes mellitus type: type 2 Laterality: left Non-pressure ulcer stage: with fat layer exposed Qualified Code(s): E11.621 - Type 2 diabetes mellitus with foot ulcer; L97.522 - Non-pressure chronic ulcer of other part of left foot with fat layer exposed - Subjective Interval history: The patient has no complaints overnight. He states his left foot and left leg are feeling better following his angioplasty. He remains hemodynamically stable. Vital Signs, Last 4 Hours Temp Pulse Resp BP Pulse Ox 05/31/19 11:36 98.4 F 73 18 138/81 100 - Physical Examination General: Present: Conversant, No Apparent Distress HEENT: Present: Atraumatic Neck: Absent: JVD Neuro: Present: Alert and responsive, No focal deficits noted Vascular: Present: Normal capillary refill, Color/Temperature (Left foot is warm.), Other (Patient has biphasic to triphasic signals at the left ankle over the dorsalis pedis, posterior tibial, and peroneal arteries.) Results 05/30/19 04:23 05/30/19 04:23 Consult Discharge Plan - Plan Referrals: Cody Pastrana MD [Primary Care Provider] - 06/17/19 3:15 pm Derrick Joyner MD [Partnered Physician] - 06/18/19 2:45 pm
--- NOTE | 2019-05-31 14:53 | Podiatry Progress Note ---
Date of Encounter: 05/31/19 Time of Encounter: 14:00 - Assessment and Plan (1) Osteomyelitis Current Visit: Yes Status: Suspected Qualifiers: Osteomyelitis type: subacute Osteomyelitis location: foot Laterality: left Qualified Code(s): M86.272 - Subacute osteomyelitis, left ankle and foot Subjective Interval history: left hallux wound been present for about a week according to the patient. he had noninvasive vascular studies done and is now s/p angioplasty with Dr. Joyner. patient says he thinks he is getting more blood flow to the foot now. patient is concerned about his dog. patient to have procedure for the left hallux amputation on Sunday. uleration distal tip of toe has exposed bone and some necrosis. foul odor from wound. wound approx 2.5cmx1.5cmx0.5cm. no purulence expressed. foot is warm to touch. edema of the hallux. Discussed with patient his condition, my findings, and recommendations for treatment. We discussed the bone infection present on the MRI and his MRI imaging. We discussed her clinical picture of his toe and we discussed amputation of the left hallux which the patient is in agreement with to proceed. Discussed doing this amputation on Sunday. Would not recommend that he left AMA and that he find someone else to feed his dog. discussed possible worsening of his infection leaving the hospital without IV antibiotics. Nature of the toe amputation procedure, risks versus benefits potential complications consequences of surgery and his condition discussed at length. He will continue the IV antibiotics for now and will plan for amputation of the hallux on Sunday. No guarantees were made as to the outcome of any procedure. Patient was added on to the OR schedule for Sunday. All of his questions have been answered and informed consent was signed. Objective - Vital Signs Vital Signs: Vital Signs Temp Pulse Pulse Resp BP Pulse Ox 05/31/19 11:36 98.4 F 73 18 138/81 100 05/31/19 07:28 98.4 F 85 18 141/91 99 05/31/19 04:21 98.6 F 85 18 138/97 98 05/31/19 01:40 82 16 110/80 96 05/31/19 00:40 98.4 F 81 16 133/63 95 05/30/19 23:40 79 16 137/87 93 05/30/19 22:40 82 16 136/80 94 05/30/19 22:10 87 16 126/75 95 05/30/19 21:40 94 140/85 97 05/30/19 20:55 73 18 141/93 96 05/30/19 20:50 82 16 126/84 92 05/30/19 20:45 76 16 140/92 95 05/30/19 20:40 83 16 101/81 95 05/30/19 20:35 87 87 115/69 05/30/19 20:30 79 79 99/76 05/30/19 20:25 76 73 18 144/90 98 05/30/19 20:20 82 82 117/94 05/30/19 20:15 68 68 149/88 05/30/19 20:10 79 72 16 126/80 98 05/30/19 19:00 65 65 18 151/101 98 05/30/19 18:30 60 60 18 146/107 98 05/30/19 18:00 60 64 18 135/91 98 05/30/19 17:45 61 61 18 164/104 97 05/30/19 17:30 61 61 18 143/87 98 05/30/19 17:15 98.2 F 66 18 143/93 100 Intake and Output 05/30/19 05/31/19 05/31/19 23:59 07:59 15:59 Intake Total 480 / 480 Output Total 400 / 400 Balance -400 / 80 480 / 80 Intake: Oral 480 / 480 Output: Urine 400 / 400 Other: Meal Lunch Percent of Meal Consumed 100% Weight 114.8 kg Blood Glucose* 133 187 232 Patient Weight 05/31/19 23:59 Weight 114.8 kg - Lab Result Diagrams: 05/30/19 04:23 05/30/19 04:23 Labs: Abnormal lab results Hgb 12.5 g/dL (12.9-16.9) L 05/30/19 04:23 MCH 27.0 pg (28.0-33.3) L 05/30/19 04:23 RDW 14.7 % (11.5-14.5) H 05/30/19 04:23 Plt Count 438 K/mcL (140-400) H 05/30/19 04:23 ESR 93 mm/hr (0-10) H 05/30/19 04:23 PT 12.2 Seconds (9.4-12.1) H 05/29/19 20:59 Glucose 223 mg/dL (70-105) H 05/30/19 04:23 POC Glucose 187 mg/dL (70-99) H 05/31/19 05:39 C-Reactive Protein 60 mg/L (Less than 10) H 05/30/19 04:23 Consult Discharge Plan - Plan Referrals: Cody Pastrana MD [Primary Care Provider] - 06/17/19 3:15 pm Derrick Joyner MD [Partnered Physician] - 06/18/19 2:45 pm
[2019-05-31] MEDS: Piperacillin/Tazobactam 3.375 GM in 0.9 % Sodium Chloride Mini Bag 100 ML IVPB SCH ×2 (15:15→23:10)
[2019-05-31] MEDS: Insulin DETEMIR 100 UNIT/ML X5UNITS SQ SCH (20:58)
[2019-06-01] MEDS: Gabapentin 300 MG CAPSULE PO SCH ×3 (08:49→20:46)
[2019-06-01] MEDS: Piperacillin/Tazobactam 3.375 GM in 0.9 % Sodium Chloride Mini Bag 100 ML IVPB SCH ×3 (08:49→23:19)
[2019-06-01] MEDS: Nicotine 14 MG PATCH.TD24 TD SCH (08:50)
[2019-06-01] MEDS: Insulin LISPRO 300 UNITS/3 ML VIAL SQ SCH ×4 (08:55→20:48)
--- NOTE | 2019-06-01 10:16 | Internal Med Progress Note ---
Hospitalist Progress Note - Encounter Date of Encounter: 06/01/19 Time of Encounter: 07:45 - Subjective Interval History: No acute events overnight. Patient states that he was able to find someone to take care of his dog so he was able to sleep well last night. He denies, fever, chills and pain in his foot. - Exam Vitals: Temp Pulse Resp BP Pulse Ox 36.6 C 77 16 133/95 97 06/01/19 07:18 06/01/19 07:18 06/01/19 07:18 06/01/19 07:18 06/01/19 07:18 Exam: GENERAL: Not in distress. Alert and Oriented HEENT: EOMI, PERRLA MOUTH: Moist oral mucosa CHEST AND LUNGS: Normal breath sounds, no wheezes or crackles HEART: S1 and S2 normal, no murmurs ABDOMEN: Soft, nontender, no organomegaly SKIN: Normal color, no rashes, no lesions EXTREMITIES: Clean Surgical dressing over left foot. Foot is warm to touch. NEUROLOGICAL: Normal cognition, normal motor and sensory exam. - Assessment and Plan (1) Diabetic ulcer of toe Current Visit: Yes Status: Acute Assessment and Plan: Had bedside debridement 05/30/19 MRI findings consistent with osteomyelitis Podiatry planning for possible digit amputation on Sunday Also had uneventful balloon angioplasty of left superficial femoral artery occlusion on 05/30/10. Vascular and podiatry following. (2) Osteomyelitis Current Visit: Yes Status: Suspected Assessment and Plan: Plan as above (3) Diabetes mellitus Current Visit: Yes Status: Acute Assessment and Plan: Poorly controlled diabetes. BG 187 this morning. HbA1c of 10.7 High-dose insulin sliding scale Started on Insulin determir Accu-Cheks Patient counseled on importance of compliance with medications. (4) Hypertension Current Visit: Yes Status: Acute Assessment and Plan: On home meds (5) Obesity (BMI 30.0-34.9) Current Visit: Yes Status: Acute Assessment and Plan: Patient counseled on weight loss options available. (6) DVT prophylaxis Current Visit: Yes Status: Acute Assessment and Plan: SCD - Time Spent with Patient Total time spent is greater than 50% in coordination of care (as documented) at patient's floor/unit and/or counseling patient: Internal Medicine: Result - Labs CBC & Chem 7: 05/30/19 04:23 05/30/19 04:23 - ABG Interpretation ABG results: PT/INR, D-dimer PT 12.2 Seconds (9.4-12.1) H 05/29/19 20:59 Consult Discharge Plan - Plan Referrals: Cody Pastrana MD [Primary Care Provider] - 06/17/19 3:15 pm Derrick Joyner MD [Partnered Physician] - 06/18/19 2:45 pm (1) Diabetic ulcer of toe Qualifiers: Diabetes mellitus type: type 2 Laterality: left Non-pressure ulcer stage: with fat layer exposed Qualified Code(s): E11.621 - Type 2 diabetes mellitus with foot ulcer; L97.522 - Non-pressure chronic ulcer of other part of left foot with fat layer exposed (2) Osteomyelitis Qualifiers: Osteomyelitis type: subacute Osteomyelitis location: foot Laterality: left Qualified Code(s): M86.272 - Subacute osteomyelitis, left ankle and foot (3) Diabetes mellitus Qualifiers: Diabetes mellitus type: type 2 Diabetes mellitus [facility] insulin use: unspecified intermediate project 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
[2019-06-01] MEDS: Insulin DETEMIR 100 UNIT/ML X5UNITS SQ SCH (20:46)
[2019-06-01] MEDS: *HR* OxyCODONE/APAP 10/325 TABLET PO PRN (21:40)
[2019-06-02 02:24] LABS: Basophils # 0.1 K/mcL (0.0-0.2); Basophils % 0.7 %; Eosinophils # 0.2 K/mcL (0.0-0.6); Eosinophils % 3.2 %; Hematocrit 34.5 % (37.5-50.1); Hemoglobin 11.1 g/dL (12.9-16.9); Immature Granulocytes % 0.3 % (0-4); Lymphocytes # 2.5 K/mcL (0.6-4.6); Lymphocytes % 33.9 %; Mean Corpuscular HGB Conc 32.2 g/dL (31.6-35.5); Mean Corpuscular Hemoglobin 26.7 pg (28.0-33.3); Mean Corpuscular Volume 83.1 fL (83.0-100.0); Mean Platelet Volume 9.6 fL (9.4-12.4); Monocytes # 0.8 K/mcL (0.0-1.3); Monocytes % 10.2 %; Neutrophils # 3.8 K/mcL (1.6-8.9); Platelet Count 426 K/mcL (140-400); Red Blood Count 4.15 M/mcL (4.19-5.50); Red Cell Distribution Width 14.4 % (11.5-14.5); Segmented Neutrophils % 51.7 %; White Blood Count 7.4 K/mcL (4.3-11.1)
[2019-06-02 02:45] LABS: BUN/Creatinine Ratio 16 (6-26); Blood Urea Nitrogen 16 mg/dL (6-20); Calcium 9.1 mg/dL (8.6-10.3); Carbon Dioxide 25 mEq/L (23-29); Chloride 103 mEq/L (98-107); Glucose 255 mg/dL (70-105); Osmolality,Calculated 290 (280-300); Potassium 4.2 mEq/L (3.5-5.1); Sodium 135 mEq/L (136-145); eGFR For African Americans > 60 (> 60); eGFR For Non-African Americans > 60 (> 60)
[2019-06-02] MEDS: Gabapentin 300 MG CAPSULE PO SCH ×2 (09:06→20:55)
[2019-06-02] MEDS: Nicotine 14 MG PATCH.TD24 TD SCH (09:07)
[2019-06-02] MEDS: Piperacillin/Tazobactam 3.375 GM in 0.9 % Sodium Chloride Mini Bag 100 ML IVPB SCH (09:07)
[2019-06-02] MEDS: Insulin LISPRO 300 UNITS/3 ML VIAL SQ SCH ×3 (09:09→20:58)
[2019-06-02] MEDS: *HR* OxyCODONE/APAP 10/325 TABLET PO PRN ×2 (09:14→20:54)
--- NOTE | 2019-06-02 09:41 | Internal Med Progress Note ---
Hospitalist Progress Note - Encounter Date of Encounter: 06/02/19 Time of Encounter: 09:37 - Exam Vitals: Temp Pulse Resp BP Pulse Ox 36.7 C 74 18 142/85 96 06/02/19 07:08 06/02/19 07:08 06/02/19 07:08 06/02/19 07:08 06/02/19 07:08 Exam: GENERAL: Not in distress. Alert and Oriented HEENT: EOMI, PERRLA MOUTH: Moist oral mucosa CHEST AND LUNGS: Normal breath sounds, no wheezes or crackles HEART: S1 and S2 normal, no murmurs ABDOMEN: Soft, nontender, no organomegaly SKIN: Normal color, no rashes, no lesions EXTREMITIES: Clean Surgical dressing over left foot. Foot is warm to touch. NEUROLOGICAL: Normal cognition, normal motor and sensory exam. - Assessment and Plan (1) Diabetic ulcer of toe Current Visit: Yes Status: Acute Assessment and Plan: Had bedside debridement 05/30/19 MRI findings consistent with osteomyelitis For possible amputation of left hallux today by podiatry Also had uneventful balloon angioplasty of left superficial femoral artery occlusion on 05/30/10. Vascular and podiatry following. (2) Osteomyelitis Current Visit: Yes Status: Suspected Assessment and Plan: Plan as above (3) Diabetes mellitus Current Visit: Yes Status: Acute Assessment and Plan: BG 255 this morning. HbA1c of 10.7 After surgery determir will be increased from 10 to 15units. Scheduled meal time coverage of 3 units tid will also be ordered. Accu-Cheks (4) Hypertension Current Visit: Yes Status: Acute Assessment and Plan: On home meds (5) Obesity (BMI 30.0-34.9) Current Visit: Yes Status: Acute Assessment and Plan: Patient counseled on weight loss options available. (6) DVT prophylaxis Current Visit: Yes Status: Acute Assessment and Plan: SCD - Time Spent with Patient Total time spent is greater than 50% in coordination of care (as documented) at patient's floor/unit and/or counseling patient: Internal Medicine: Result - Labs CBC & Chem 7: 06/02/19 02:07 06/02/19 02:07 Labs: Short CBC 06/02/19 Range/Units 02:07 WBC 7.4 (4.3-11.1) K/mcL Hgb 11.1 L (12.9-16.9) g/dL Hct 34.5 L (37.5-50.1) % Plt Count 426 H (140-400) K/mcL Neutrophils # 3.8 (1.6-8.9) K/mcL BMP 06/02/19 02:07 Sodium 135 L Potassium 4.2 Chloride 103 Carbon Dioxide 25 BUN 16 Creatinine 0.98 Glucose 255 H Calcium 9.1 - ABG Interpretation ABG results: PT/INR, D-dimer PT 12.2 Seconds (9.4-12.1) H 05/29/19 20:59 Consult Discharge Plan - Plan Referrals: Cody Pastrana MD [Primary Care Provider] - 06/17/19 3:15 pm Derrick Joyner MD [Partnered Physician] - 06/18/19 2:45 pm (1) Diabetic ulcer of toe Qualifiers: Diabetes mellitus type: type 2 Laterality: left Non-pressure ulcer stage: with fat layer exposed Qualified Code(s): E11.621 - Type 2 diabetes mellitus with foot ulcer; L97.522 - Non-pressure chronic ulcer of other part of left foot with fat layer exposed (2) Osteomyelitis Qualifiers: Osteomyelitis type: subacute Osteomyelitis location: foot Laterality: left Qualified Code(s): M86.272 - Subacute osteomyelitis, left ankle and foot (3) Diabetes mellitus Qualifiers: Diabetes mellitus type: type 2 Diabetes mellitus residential insulin use: unspecified manager terminal insulin use status Diabetes mellitus complication status: with skin complications Diabetes mellitus complication detail: with foot ulcer Qualified Code(s): E11.621 - Type 2 diabetes mellitus with foot ulcer; L97.509 - Non-pressure chronic ulcer of other part of unspecified foot with unspecified severity (4) Hypertension Qualifiers: Hypertension type: essential hypertension Qualified Code(s): I10 - Essential (primary) hypertension
[2019-06-02] MEDS ORDERED: Insulin DETEMIR 100 UNIT/ML X5UNITS SQ ONE (09:45)
--- NOTE | 2019-06-02 11:20 | Internal Med Progress Note ---
Hospitalist Progress Note - Encounter Date of Encounter: 06/02/19 Time of Encounter: 11:17 - Subjective Interval History: No acute events overnight. Patient denies fever, chills and pain in left foot. States that he wpuld like to go home today after surgery. - Exam Vitals: Temp Pulse Resp BP Pulse Ox 36.8 C 71 18 118/69 98 06/02/19 11:05 06/02/19 11:05 06/02/19 11:05 06/02/19 11:05 06/02/19 11:05 Exam: GENERAL: Not in distress. Alert and Oriented HEENT: EOMI, PERRLA MOUTH: Moist oral mucosa CHEST AND LUNGS: Normal breath sounds, no wheezes or crackles HEART: S1 and S2 normal, no murmurs ABDOMEN: Soft, nontender, no organomegaly SKIN: Normal color, no rashes, no lesions EXTREMITIES: Clean Surgical dressing over left foot. Foot is warm to touch. NEUROLOGICAL: Normal cognition, normal motor and sensory exam. - Assessment and Plan (1) Diabetic ulcer of toe Current Visit: Yes Status: Acute Assessment and Plan: Had bedside debridement 05/30/19 MRI findings consistent with osteomyelitis For possible amputation of left hallux this afternoon by podiatry Also had uneventful balloon angioplasty of left superficial femoral artery occlusion on 05/30/10. Vascular and podiatry following. (2) Osteomyelitis Current Visit: Yes Status: Suspected Assessment and Plan: Plan as above (3) Diabetes mellitus Current Visit: Yes Status: Acute Assessment and Plan: BG 255 this morning. HbA1c of 10.7 After surgery determir will be increased from 10 to 15units. Scheduled meal time coverage of 3 units tid will also be ordered. Accu-Cheks (4) Hypertension Current Visit: Yes Status: Acute (5) Obesity (BMI 30.0-34.9) Current Visit: Yes Status: Acute (6) DVT prophylaxis Current Visit: Yes Status: Acute - Time Spent with Patient Total time spent is greater than 50% in coordination of care (as documented) at patient's floor/unit and/or counseling patient: Internal Medicine: Result - Labs CBC & Chem 7: 06/02/19 02:07 06/02/19 02:07 Labs: Short CBC 06/02/19 Range/Units 02:07 WBC 7.4 (4.3-11.1) K/mcL Hgb 11.1 L (12.9-16.9) g/dL Hct 34.5 L (37.5-50.1) % Plt Count 426 H (140-400) K/mcL Neutrophils # 3.8 (1.6-8.9) K/mcL BMP 06/02/19 02:07 Sodium 135 L Potassium 4.2 Chloride 103 Carbon Dioxide 25 BUN 16 Creatinine 0.98 Glucose 255 H Calcium 9.1 - ABG Interpretation ABG results: PT/INR, D-dimer PT 12.2 Seconds (9.4-12.1) H 05/29/19 20:59 Consult Discharge Plan - Plan Referrals: Cody Pastrana MD [Primary Care Provider] - 06/17/19 3:15 pm Derrick Joyner MD [Partnered Physician] - 06/18/19 2:45 pm (1) Diabetic ulcer of toe Qualifiers: Diabetes mellitus type: type 2 Laterality: left Non-pressure ulcer stage: with fat layer exposed Qualified Code(s): E11.621 - Type 2 diabetes mellitus with foot ulcer; L97.522 - Non-pressure chronic ulcer of other part of left foot with fat layer exposed (2) Osteomyelitis Qualifiers: Osteomyelitis type: subacute Osteomyelitis location: foot Laterality: left Qualified Code(s): M86.272 - Subacute osteomyelitis, left ankle and foot (3) Diabetes mellitus Qualifiers: Diabetes mellitus type: type 2 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
--- NOTE | 2019-06-02 15:49 | Anesthesia Evaluation PreOp ---
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 History: Other (diabetic neuropathy) Other Medical History: Diabetes Type II, Other (diabetic ulcers) Anesthesia History: No Prior Anesthetic Complications, Past Anesthesia (tonsils) Alcohol Use: occasionally Drug use: none Medications and Allergies Cholecalciferol (Vitamin D3) [Vitamin D] 50,000 unit PO TUFR 08/07/17 [History] Oxycodone HCl/Acetaminophen [Percocet 10-325 mg Tablet] 1 tab PO Q6H PRN 08/07/17 [History] Insulin Lispro Protamin/Lispro [Humalog Mix 75-25 Vial] 45 unit SQ BID 08/08/17 [History] Albuterol Sulfate [Albuterol Inhaler] 1 puff IH Q4-6H PRN 01/29/19 [History] Gabapentin [Neurontin] 600 mg PO TID 01/29/19 [History] Leucovorin/Pyridox/Mecobalamin [Folinic-Plus Caplet] 1 tab PO DAILY 01/29/19 [History] Losartan Potassium 100 mg PO DAILY 01/29/19 [History] DULoxetine [Cymbalta] 30 mg PO DAILY 05/29/19 [History] Sildenafil Citrate [Revatio] 20 mg PO PRN PRN 05/29/19 [History] Vitamin E 100 unit PO DAILY 05/29/19 [History] Amitriptyline [Elavil] 50 mg PO HS PRN 05/30/19 [History] Insulin ASPART [Novolog Flexpen] 5 - 10 units SQ ACHS 05/30/19 [History] Allergy/AdvReac Type Severity Reaction Status Date / Time No Known Allergies Allergy Verified 05/30/19 14:19 - Meds/Allergy Pre-op Review Medications Reviewed: Yes Allergies Reviewed: Yes Beta Blockers on Current Med List: No Anesthesia Results - Labs 06/02/19 02:07 06/02/19 02:07 Laboratory Tests 02/06/19 06/02/19 06/02/19 12:51 02:07 02:07 Hgb 11.1 L Hct 34.5 L Sodium 135 L Potassium 4.2 BUN 16 Creatinine 0.98 Hemoglobin A1c 10.7 H Anesthesia Exam Selected Entries 06/02/19 12:15 Temperature 98.2 F Pulse Rate 71 Respiratory Rate 18 Blood Pressure 118/69 O2 Sat by Pulse Oximetry 98 Oxygen Delivery Method Room Air Weight: 114kg - Cardiac Rhythm: Regular Murmur: None - Pulmonary Breath Sounds: bilateral Clear Respiratory Effort: Symmetrical <Carla Farnsworth - Last Filed: 06/02/19 18:12> Date of Encounter: 06/02/19 Time of Encounter: 18:12 Anesthesia Results - Labs 06/02/19 02:07 06/02/19 02:07 Anesthesia Exam Vital Signs/O2 Sat, Most Current Temp Pulse Resp BP Pulse Ox 97.9 F 79 18 132/95 98 06/02/19 16:00 06/02/19 16:00 06/02/19 16:00 06/02/19 16:00 06/02/19 16:00 NPO (# of Hours): >8 - HEENT Pupil (Motor): Pupils equal, EOMI Mallampati: III Teeth: Edentulous Oral Opening: Greater than 3 - 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
--- NOTE | 2019-06-02 17:24 | Operative Note ---
Date of procedure: 06/02/19 Pre-op diagnosis: left hallux osteomyelitis Post-op diagnosis: same Procedure: amputation left hallux Implants: none Complications: none Anesthesia: MAC Local Anesthetics: 1% Lidocaine HCL SubQ (cc) Was there an orthopedic physician assistant present: No Estimated blood loss (cc): 10 Specimen: left hallux bone-micro and pathology Condition: stable Disposition: PACU Procedure in Detail: Indications: 58-year-old male s/p revascularization of left lower extremity by Dr. Joyner and patient has osteomyelitis of the left hallux and being brought to the operating room for amputation of the left hallux after discussing the nature of the procedure, risks first benefits potential complications consequences of surgery and his condition at length. No guarantees made as to the outcome of any procedure. All of his questions were answered and informed consent was signed. No tourniquet was utilized during the entire procedure. The left lower extremity was scrubbed prepped and draped in the usual sterile fashion and the following procedure then began. Blood obtained by the perfusion team and spun into PRP. Amputation left hallux. Attention was directed to the left hallux where a necrotic ulceration present at the distal aspect and a #15 blade was used to make an incision full-thickness over the proximal phalanx down to the level of the bone. A racquet type incision was made circumferentially around the toe sa gittal saw used to resect bone and the proximal phalanx was disarticulated at the resection site and bone was sent to microbiology and pathology. The site was irrigated and no devitalized tissue was present at the level of the amputation site and no purulence was expressed from this area. The decision was made to close the amputation site and 2-0 Prolene was used to reapproximate the skin at this level. Adequate hemostasis was present at the conclusion. Postoperative bandaging included Xeroform, 4 x 4 gauze and kerlix. The patient tolerated the anesthesia and the procedure well and was escorted to recovery room with vital signs stable and vascular status intact to remaining digits of the left foot. PRP was injected into the amputation site. He will return to the floor.
[2019-06-02] MEDS ORDERED: Propofol 500 MG/50 ML INFUS..BTL ONE (18:22)
[2019-06-02] MEDS ORDERED: Lidocaine -MPF 2% 2 ML VIAL ONE (18:22)
[2019-06-02] MEDS ORDERED: Vancomycin 1,000 MG VIAL ONE (18:26)
[2019-06-02] MEDS ORDERED: *HR* FentaNYL (PF) 100 MCG/2 ML VIAL ONE (18:50)
[2019-06-02] MEDS ORDERED: Calcium Gluconate 1,000 MG/10 ML VIAL ONE (18:50)
[2019-06-02] MEDS ORDERED: Dextrose Gel 15 GM/37.5 ML TUBE PO PRN ×2 (19:39)
[2019-06-02] MEDS ORDERED: *HR* Dextrose 50 % in Water (Syg) 50 ML SYRINGE IVP PRN (19:39)
[2019-06-02] MEDS ORDERED: Naloxone 0.4 MG/ML INJ IVP PRN (19:39)
[2019-06-02] MEDS ORDERED: D5% in Water 1,000 ML IVC PRN (19:39)
[2019-06-02] MEDS ORDERED: Acetaminophen 325 MG TABLET PO PRN (19:39)
--- NOTE | 2019-06-02 20:15 | Anesthesia Evaluation Post Op ---
Date of Encounter: 06/02/19 Time of Encounter: 20:14 - Vital Signs Vital Signs: Vital Signs/O2 Sat, Most Current Temp Pulse Resp BP Pulse Ox 97.9 F 69 16 153/94 96 06/02/19 19:44 06/02/19 19:44 06/02/19 19:44 06/02/19 19:44 06/02/19 19:44 - Lungs Lungs: Clear Ascult./Percussion - Airway Airway: Non-obstructed - Cardiovascular Regular Rate - Mental Status Mental Status: Baseline Status - Pain Pain Scale: 0 Pain Scale used: Numeric (1 - 10) - Nausea Vomiting Nausea Vomiting: Not Present - Hydration Hydration: Tolerates oral liquids - Discharge PostOp Status: Transfer Patient to floor
[2019-06-02] MEDS ORDERED: Insulin DETEMIR 100 UNIT/ML X5UNITS SQ SCH ×2 (21:00)
[2019-06-03] MEDS: *HR* OxyCODONE/APAP 10/325 TABLET PO PRN ×3 (00:56→20:47)
[2019-06-03] MEDS: Piperacillin/Tazobactam 3.375 GM in 0.9 % Sodium Chloride Mini Bag 100 ML IVPB SCH (01:21)
[2019-06-03] MEDS: Insulin LISPRO 300 UNITS/3 ML VIAL SQ SCH ×5 (01:21→20:48)
[2019-06-03] MEDS: Gabapentin 300 MG CAPSULE PO SCH ×4 (01:21→20:47)
[2019-06-03 04:55] LABS: Basophils % 0.6 %; Eosinophils # 0.3 K/mcL (0.0-0.6); Eosinophils % 3.8 %; Hematocrit 33.2 % (37.5-50.1); Hemoglobin 10.7 g/dL (12.9-16.9); Immature Granulocytes % 0.1 % (0-4); Lymphocytes # 2.6 K/mcL (0.6-4.6); Lymphocytes % 38.5 %; Mean Corpuscular HGB Conc 32.2 g/dL (31.6-35.5); Mean Corpuscular Volume 83.8 fL (83.0-100.0); Mean Platelet Volume 9.2 fL (9.4-12.4); Monocytes # 0.7 K/mcL (0.0-1.3); Monocytes % 10.6 %; Neutrophils # 3.1 K/mcL (1.6-8.9); Platelet Count 388 K/mcL (140-400); Red Blood Count 3.96 M/mcL (4.19-5.50); Red Cell Distribution Width 14.3 % (11.5-14.5); Segmented Neutrophils % 46.4 %; White Blood Count 6.8 K/mcL (4.3-11.1)
[2019-06-03 05:14] LABS: BUN/Creatinine Ratio 15 (6-26); Blood Urea Nitrogen 13 mg/dL (6-20); Calcium 8.8 mg/dL (8.6-10.3); Carbon Dioxide 24 mEq/L (23-29); Chloride 105 mEq/L (98-107); Glucose 208 mg/dL (70-105); Osmolality,Calculated 284 (280-300); Sodium 134 mEq/L (136-145); eGFR For African Americans > 60 (> 60); eGFR For Non-African Americans > 60 (> 60)
[2019-06-03] MEDS ORDERED: Aminoglycoside Consult 1 EACH MC ONE (07:40)
--- NOTE | 2019-06-03 08:53 | Podiatry Progress Note ---
Date of Encounter: 06/03/19 Time of Encounter: 08:25 - Assessment and Plan (1) Diabetic ulcer of toe Current Visit: Yes Status: Acute Assessment: -Post op day #1 amputation of left hallux by Dr. Joseph on 06/02/2019 -No complications noted -05/14/19 VASQUEZ right 0.97 left 0.7 -s/p Abdominal aortogram, Aortogram with bilateral lower extremity runoff, Standard and drug coated balloon angioplasty of left superficial femoral artery occlusion by Dr. Joyner on 05/30/2019 -05/14/19 TCPO2 consistent with healing -Wound cultures from 05/29/2019 final for Stap. aureus, E. coli, proteus hauseri, morganella aroldo.ssp morganii, and klebsiella oxytoca -Surgical wound cultures preliminary -CT of left foot suggestive for OM -MRI showed OM of distal phalanx -WBC 6.8, afebrile -ESR 93, CRP 60 -HGB A1C 10.7 Plan: -Recommend referral to ID for antibiotic recommendations -Limited weight bearing LLE, weight bearing in surgical shoe LLE -Follow up with Dr. Joseph outpatient in office, please schedule appointment prior to discharge -Dressings changes twice weekly using adaptic, 4x4's, and Kerlix -Tight glycemic control per primary team Dressing changed: Surgical site flushed with sterile normal saline and pat dry. Painted site with betadine and covered with adaptic, 4x4's, and Kerlix. Secured with medipore tape. Qualifiers: Diabetes mellitus type: type 2 Laterality: left Non-pressure ulcer stage: with fat layer exposed Qualified Code(s): E11.621 - Type 2 diabetes mellitus with foot ulcer; L97.522 - Non-pressure chronic ulcer of other part of left foot with fat layer exposed Subjective Interval history: Patient is post op day #1 amputation left hallux by Dr. Joseph on 06/02/2019. He is resting in bed watching tv with no acute distress noted. He is well nourished. Patient denies any chest pain or shortness of breath, he reports occasional tenderness to calf LLE. He denies any fever, chills, nausea, vomiting, or diarrhea. Dressing intact left lower extremity. Objective - Vital Signs Vital Signs: Vital Signs Temp Pulse Resp BP Pulse Ox 06/03/19 08:33 98.4 F 74 17 147/88 96 06/03/19 04:03 98.3 F 73 16 130/80 93 06/02/19 23:30 98.2 F 74 16 146/74 95 06/02/19 22:25 98.2 F 78 16 141/91 95 06/02/19 20:49 98.7 F 64 16 164/105 100 06/02/19 20:28 98.1 F 73 16 153/89 94 06/02/19 19:49 95 06/02/19 19:44 97.9 F 69 16 153/94 96 06/02/19 16:00 97.9 F 79 18 132/95 98 06/02/19 12:15 98.2 F 71 18 118/69 98 06/02/19 11:05 98.2 F 71 18 118/69 98 06/02/19 08:55 98.1 F 74 18 142/85 96 Intake and Output 06/02/19 06/03/19 06/03/19 23:59 07:59 15:59 Intake Total 0 / 700 500 / 500 Output Total 350 / 350 Balance -10 150 / 150 Intake: IV Fluids 500 / 500 Vancocin 2,000 MG In 0.9 % 500 / 500 Sodium Chloride 500 ML @ 250 mls/hr IVPB Q12H [facility] Rx#: [id number] Oral 0 / 0 0 / 0 Output: Urine 350 / 350 Estimated Blood Loss Other: Meal NPO Percent of Meal Consumed 0% Stool Size Moderate Stool Consistency soft Stool Color Brown # Bowel Movements 1 Blood Glucose* 134 144 - Exam Exam: Constitutional: Alert and oriented x 3, well nourished, no acute distress noted Vascular: 1/4 DP/PT pulse LLE, cap refill less than 3 seconds, skin warm from tibia to toes, calf pain with squeeze LLE, no edema noted, no increase in warmth noted, negative Bryan's sign Neurological: absent sensation to touch, normal plantar response Dermatological: s/p amputation left hallux, surgical wound without signs of complications noted, sutures intact and edges coapting, dry sanguineous drainage noted to 4x4, mild edema noted to site Musculoskeletal: 4/5 muscle strength and normal tone LLE - Lab Result Diagrams: 06/03/19 04:44 06/03/19 04:44 Labs: Abnormal lab results RBC 3.96 M/mcL (4.19-5.50) L 06/03/19 04:44 Hgb 10.7 g/dL (12.9-16.9) L 06/03/19 04:44 Hct 33.2 % (37.5-50.1) L 06/03/19 04:44 MCH 27.0 pg (28.0-33.3) L 06/03/19 04:44 RDW 14.7 % (11.5-14.5) H 05/30/19 04:23 Plt Count 426 K/mcL (140-400) H 06/02/19 02:07 MPV 9.2 fL (9.4-12.4) L 06/03/19 04:44 ESR 93 mm/hr (0-10) H 05/30/19 04:23 PT 12.2 Seconds (9.4-12.1) H 05/29/19 20:59 Sodium 134 mEq/L (136-145) L 06/03/19 04:44 Glucose 208 mg/dL (70-105) H 06/03/19 04:44 POC Glucose 126 mg/dL (70-99) H 06/02/19 20:57 C-Reactive Protein 60 mg/L (Less than 10) H 05/30/19 04:23 Vancomycin Trough 13 mcg/mL (5-10) H 06/02/19 02:07 Microbiology, Last 48 Hours 06/02/19 18:58 Anaerobic Culture - Preliminary Left Great Toe Culture is incubating. 06/02/19 18:58 Surgical Biopsy Culture - Preliminary Left Great Toe Consult Discharge Plan - Plan Referrals: Cody Pastrana MD [Primary Care Provider] - 06/17/19 3:15 pm Derrick Joyner MD [Partnered Physician] - 06/18/19 2:45 pm
[2019-06-03] MEDS: *HR* HYDROcodone/Acet 5/325 mg TABLET PO PRN ×2 (09:31→15:23)
[2019-06-03] MEDS: Nicotine 14 MG PATCH.TD24 TD SCH (09:31)
--- NOTE | 2019-06-03 11:45 | Infectious Disease Consult ---
Infectious Disease-Consult - Encounter Date/Time Date of Encounter: 06/03/19 Time of Encounter: 11:41 - Data of Consult Patient: new to practice Reason for consult: "Left hallux osteomyelitis on vanc and zosyn. Had digit amputation yesterday. Recommednations on antibiotics for DC. thanks" Consult date: 06/03/19 Requesting Physician: Aury Capps MD Primary Care Provider: Cody Pastrana MD - HPI HPI: MR. Carter is a 58-year-old male with a past medical history of diabetes, hyperlipidemia, and hypertension. The patient was admitted to the hospital 05/29/19 for osteomyelitis of the left foot. We are consulted 06/03/19 for further workup and treatment recommendations for left foot osteoarthritis. Briefly, the patient is a 58-year-old male with a past medical history as stated above. The patient presented to [facility] with complaints of left foot swelling, pain, and drainage from an existing diabetic ulcer. Upon arrival, he was afebrile and hemodynamically stable. White blood cell count was normal. CT of the left foot showed a cortical irregularity of the first distal phalanx tuft and erosive changes of the medial first proximal phalanx head. He was started on IV antibiotics and transferred here for further evaluation. Since admission, the patient has remained afebrile and hemodynamically stable. ESR was elevated at 93 with a CRP of 60. Proalcitonin was normal. Swab culture of the wound was obtained that grew MSSA, Escherichia coli, Proteus, Morganella, and Klebsiella. He had an MRI that showed findings consistent with cellulitis and osteoarthritis of the first distal phalanx. Podiatry was consulted who had concern that the patient had poor blood flow to the extremity. Vascular surgery was consulted and on 05/30/19 the patient underwent an angiogram with angioplasty to the left superficial femoral artery. Venous duplex study was negative for DVT or SVT. The patient had evidence of increased perfusion to the left foot. On 06/02/19 he was taken to the operating room where he underwent amputation of the left hallux. Intraoperative cultures and pathology are pending. Currently, he is on vancomycin and Zosyn. We have been asked to evaluate and make further recommendations. During my exam today, the patient states that he has had an ulcer to the left great toe for about a year that originally occurred after he kicked a refrigerator. He sensed that since then and has been waxing and waning and he has been seeing Dr. Campbell in the wound clinic. He reports last visit was about 3 weeks ago. He states about a week prior to presentation, he developed worsening of the ulcer with foul-smelling clear drainage and worsening left foot pain. He denies fevers, chills, rigors. Denies chest pain, shortness of breath, or cough. Reports some nausea, but denies vomiting. States his by mouth intake has been adequate. Denies abdominal pain or urinary complaints. Denies diarrhea. States pain in the left foot is improved since surgery. Denies oral thrush or skin rashes. The patient lives at home by himself. He does have a dog at home, but denies any bites or scratches. He does not work outside the home due to being disabled from a back injury and his lower extremity neuropathy. He smokes half pack cigarettes per day. Denies alcohol or illicit drug use. Denies any chronic infectious diseases. - ROS Review of Systems: All systems reviewed and no additional remarkable complaints except as stated. - Results CBC & Chem 7: 06/05/19 04:50 06/05/19 04:50 - Exam Vitals: Temp Pulse Resp BP Pulse Ox 98.4 F 74 17 147/88 96 06/03/19 08:33 06/03/19 08:33 06/03/19 08:33 06/03/19 08:33 06/03/19 08:33 Exam: Head: Atraumatic, normal inspection, normocephalic. Eye: EOMI, PERRLA, no scleral icterus noted. ENT: Mucous membranes moist. No odontogenic infection noted. Neck: Normal inspection, no meningismus. Respiratory: Clear to auscultation. No rales, respiratory distress, rhonchi, or wheezes noted. Cardiovascular: Regular rate and rhythm, S1 and S2 audible. No murmurs, rubs, or gallops. GI: Soft, nondistended, normal bowel sounds. Extremities:No joint swelling, pedal edema, or tenderness noted. Back: Normal inspection. No vertebral tenderness noted. Neurological: Alert, oriented 3, no focal deficits. Psychiatric: normal affect, normal mood. Skin: Dry, intact, warm. Normal color. No rashes. Cholecalciferol (Vitamin D3) [Vitamin D3] 50,000 unit PO TUFR 08/07/17 [History] Oxycodone HCl/Acetaminophen [Percocet 10-325 mg Tablet] 1 tab PO Q6H PRN 08/07/17 [History] Insulin Lispro Protamin/Lispro [Humalog Mix 75-25 Vial] 45 unit SQ BID 08/08/17 [History] Albuterol Sulfate [Proventil Inhaler] 1 puff IH Q4-6H PRN 01/29/19 [History] Gabapentin [Neurontin] 600 mg PO TID 01/29/19 [History] Leucovorin/Pyridox/Mecobalamin [Folinic-Plus Caplet] 1 tab PO DAILY 01/29/19 [History] Losartan Potassium 100 mg PO DAILY 01/29/19 [History] DULoxetine [Cymbalta] 30 mg PO DAILY 05/29/19 [History] Sildenafil Citrate [Revatio] 20 mg PO PRN PRN 05/29/19 [History] Vitamin E 100 unit PO DAILY 05/29/19 [History] Amitriptyline [Elavil] 50 mg PO HS PRN 05/30/19 [History] Insulin ASPART [Novolog Flexpen] 5 - 10 units SQ ACHS 05/30/19 [History] Clopidogrel [Plavix] 75 mg PO DAILY 15 Days #15 tablet 06/05/19 [Rx] Vancomycin HCl in 5 % Dextrose [Vancomycin 1.75 Gram/500Ml-D5w] 1.75 gm IV Q12HR 15 Days #30 plast..bag 06/05/19 [Rx] cefTRIAXone [Rocephin] 2,000 mg IVPB DAILY 15 Days #15 vial 06/05/19 [Rx] metroNIDAZOLE [Flagyl] 500 mg PO TID 15 Days #45 tablet 06/05/19 [Rx] Allergy/AdvReac Type Severity Reaction Status Date / Time No Known Allergies Allergy Verified 05/30/19 14:19 - Assessment and Plan (1) Osteomyelitis Status: Acute Location: Left hallux. Causative organism: MSSA, E. coli, P. hauseri, M. morgannii, K. oxytoca. Secondary to chronic diabetic foot ulcer. CT of the left foot showed cortical irregularity of the 1st distal phalanx tuft MRI of the left foot showed OM of the 1st distal phalanx. Pre-op ESR 93, CRP 60. Podiatry consulted. Status post left hallux amputation 06/02/[address] Joseph. Currently on Vanc and Zosyn. Qualifiers: Osteomyelitis type: subacute Osteomyelitis location: foot Laterality: left Qualified Code(s): M86.272 - Subacute osteomyelitis, left ankle and foot SNOMED Code(s): 83786307 (2) Diabetic ulcer of toe Status: Acute Location: Left great toe. Secondary to traumatic injury about a year ago. Waxing and waning for several months. Podiatry consulted and following. Qualifiers: Diabetes mellitus type: type 2 Laterality: left Non-pressure ulcer stage: with fat layer exposed Qualified Code(s): E11.621 - Type 2 diabetes mellitus with foot ulcer; L97.522 - Non-pressure chronic ulcer of other part of left foot with fat layer exposed SNOMED Code(s): 309815829, 210099801 (3) PAD (peripheral artery disease) Status: Chronic VASQUEZ 05/24/19 right 0.97; left 0.7. TCPO2 monitoring 05/14/19 consistent with healing. Vascular surgery consulted. Status post angiogram with angioplasty of the left SFA 05/30/[address] Joyner. SNOMED Code(s): 737662374, 919228703 (4) Hypertension Status: Acute Qualifiers: Hypertension type: essential hypertension Qualified Code(s): I10 - Essential (primary) hypertension SNOMED Code(s): 29491988 (5) Obesity (BMI 30.0-34.9) Status: Acute SNOMED Code(s): 681596740302508 (6) Depression Status: Chronic Qualifiers: Depression Type: major depressive disorder Major depression recurrence: recurrent Qualified Code(s): F33.0 - Major depressive disorder, recurrent, mild SNOMED Code(s): 36657003 (7) Diabetes mellitus Status: Acute Check hemoglobin A1c. Recommend aggressive glucose monitoring and control to promote wound healing and prevent reinfection. Management per the primary team. Qualifiers: Diabetes mellitus type: type 2 Diabetes mellitus shelter insulin use: unspecified shelter insulin use status Diabetes mellitus complication status: with skin complications Diabetes mellitus complication detail: with foot ulcer Qualified Code(s): E11.621 - Type 2 diabetes mellitus with foot ulcer; L97.509 - Non-pressure chronic ulcer of other part of unspecified foot with unspecified severity SNOMED Code(s): 26857671 - Recommendations Recommendations: Await intraoperative cultures and pathology. Wound care per the podiatry team. Discontinue Vanc and Zosyn. Start Rocephin 2 grams IV daily. Duration of treatment depends on the clinical picture. Will plan to do at least two weeks of IV antibiotics post-op per podiatry request. Monitor renal function and dose-adjust antibiotics. Past Med Surg Social Fam HX - Past Medical History Attestation: Yes The following information was validated with the patient. Source: patient, old records reviewed, nursing notes reviewed Medical history: diabetes, hyperlipidemia, hypertension Additional medical history: neuropathy Psychiatric history: depression - Past Surgical History Surgical History: tonsillectomy - Social History Smoking Status: Current every day smoker Packs per day: 1 Smokeless Tobacco Status: No Alcohol use: occasionally Drug use: none Occupational status: disabled Current living situation: Home - Independent Activity Level: Independent ambulation Recent Out of Country Travel Within the Last 8 Weeks: No Exposure or Possible Exposure to Illness During Travel: No Consult Discharge Plan - Plan Instructions: Chronic Hypertension (DC) Referrals: Cody Pastrana MD [Primary Care Provider] - 06/17/19 3:15 pm Jackie Reynolds CNP [Advanced Practice Nurse] - 06/19/19 2:20 pm Derrick Joyner MD [Partnered Physician] - 06/18/19 2:45 pm Prescriptions: metroNIDAZOLE [Flagyl] 500 mg PO TID 15 Days #45 tablet Prescription Printed Clopidogrel [Plavix] 75 mg PO DAILY 15 Days #15 tablet Prescription Printed cefTRIAXone [Rocephin] 2,000 mg IVPB DAILY 15 Days #15 vial Prescription Printed Vancomycin HCl in 5 % Dextrose [Vancomycin 1.75 Gram/500Ml-D5w] 1.75 gm IV Q12HR 15 Days #30 plast..bag Prescription Printed - Attending Attestation I have personally performed a face to face evaluation on this patient. I have reviewed and agree with the care plan. This is an addendum to original report dictated by Jackie Reynolds CNP. Please refer to Jackie's note for full detail. Agree with above history of present illness, review of system and physical exam findings. Assessment and plan: Osteomyelitis left hallux causative organism MSSA, Escherichia coli, Proteus, Morganella and klebsiella status post left hallux amputation 06/02/2019 Diabetic ulcer of toe peripheral artery disease hypertension obesity depression diabetes mellitus REcommendations Await intraoperative cultures and pathology. Wound care per the podiatry team. Discontinue Vanc and Zosyn. Start Rocephin 2 grams IV daily. Duration of treatment depends on the clinical picture. Will plan to do at least two weeks of IV antibiotics post-op per podiatry request. Monitor renal function and dose-adjust antibiotics.
[2019-06-03] MEDS: cefTRIAXone 2,000 MG in Water for inj. (sterile) 20 ML IVP SCH (15:21)
--- NOTE | 2019-06-03 16:14 | Internal Med Progress Note ---
Hospitalist Progress Note - Encounter Date of Encounter: 06/03/19 Time of Encounter: 16:12 - Subjective Interval History: No acute events overnight. Patient denies fever, chills and pain at surgical sight. - Exam Vitals: Temp Pulse Resp BP Pulse Ox 36.8 C 79 17 138/89 94 06/03/19 15:30 06/03/19 15:30 06/03/19 15:30 06/03/19 15:30 06/03/19 15:30 Exam: GENERAL: Not in distress. Alert and Oriented HEENT: EOMI, PERRLA MOUTH: Moist oral mucosa NECK:No JVD, No lymph nodes. CHEST AND LUNGS: Normal breath sounds, no wheezes or crackles HEART: S1 and S2 normal, no murmurs ABDOMEN: Soft, nontender, no organomegaly SKIN: Normal color, no rashes, no lesions EXTREMITIES: Clean surgical dressing on left foot. NEUROLOGICAL: Normal cognition, normal motor and sensory exam. - Assessment and Plan (1) Diabetic ulcer of toe Current Visit: Yes Status: Acute Assessment and Plan: S/p Left amoutation of distal phalanx of hallux 05/13/2019 Patient on IV antibiotics ID following Recommend waiting for final culture results of surgical specimen (2) Osteomyelitis Current Visit: Yes Status: Acute Assessment and Plan: As above (3) Diabetes mellitus Current Visit: Yes Status: Acute Assessment and Plan: Blood glucose still uncontrolled (4) Hypertension Current Visit: Yes Status: Acute Assessment and Plan: On home meds (5) Obesity (BMI 30.0-34.9) Current Visit: Yes Status: Acute Assessment and Plan: Patient counseled on weight loss options available. (6) DVT prophylaxis Current Visit: Yes Status: Acute Assessment and Plan: SCD - Time Spent with Patient Total time spent is greater than 50% in coordination of care (as documented) at patient's floor/unit and/or counseling patient: Internal Medicine: Result - Labs CBC & Chem 7: 06/03/19 04:44 06/03/19 04:44 Labs: Short CBC 06/03/19 Range/Units 04:44 WBC 6.8 (4.3-11.1) K/mcL Hgb 10.7 L (12.9-16.9) g/dL Hct 33.2 L (37.5-50.1) % Plt Count 388 (140-400) K/mcL Neutrophils # 3.1 (1.6-8.9) K/mcL BMP 06/03/19 04:44 Sodium 134 L Potassium 4.0 Chloride 105 Carbon Dioxide 24 BUN 13 Creatinine 0.87 Glucose 208 H Calcium 8.8 - ABG Interpretation ABG results: PT/INR, D-dimer PT 12.2 Seconds (9.4-12.1) H 05/29/19 20:59 - Impressions Impressions Foot MRI 05/30/19 09:59 IMPRESSION: Large soft tissue ulceration involving the tip of the 1st digit extending to the level of bone with surrounding cellulitis and subcutaneous edema extending to the dorsal aspect of the foot. Osteomyelitis of the 1st distal phalanx with erosive changes of the 1st distal phalanx tuft. D/ / 05/30/2019 10:10:30 Cameron Pena MD / steve Interpreting Provider: Cameron Pena MD Consult Discharge Plan - Plan Referrals: Cody Pastrana MD [Primary Care Provider] - 06/17/19 3:15 pm Derrick Joyner MD [Partnered Physician] - 06/18/19 2:45 pm (1) Diabetic ulcer of toe Qualifiers: Diabetes mellitus type: type 2 Laterality: left Non-pressure ulcer stage: with fat layer exposed Qualified Code(s): E11.621 - Type 2 diabetes mellitus with foot ulcer; L97.522 - Non-pressure chronic ulcer of other part of left foot with fat layer exposed (2) Osteomyelitis Qualifiers: Osteomyelitis type: subacute Osteomyelitis location: foot Laterality: left Qualified Code(s): M86.272 - Subacute osteomyelitis, left ankle and foot (3) Diabetes mellitus Qualifiers: Diabetes mellitus type: type 2 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
[2019-06-03] MEDS: Insulin DETEMIR 100 UNIT/ML X5UNITS SQ SCH (20:48)
[2019-06-03] MEDS ORDERED: Piperacillin/Tazobactam 3.375 GM in 0.9 % Sodium Chloride Mini Bag 100 ML IVPB SCH (22:00)
[2019-06-04 06:04] LABS: Basophils # 0.1 K/mcL (0.0-0.2); Basophils % 0.8 %; Eosinophils # 0.2 K/mcL (0.0-0.6); Eosinophils % 3.9 %; Hematocrit 36.4 % (37.5-50.1); Hemoglobin 11.4 g/dL (12.9-16.9); Immature Granulocytes % 0.3 % (0-4); Lymphocytes # 2.1 K/mcL (0.6-4.6); Mean Corpuscular HGB Conc 31.3 g/dL (31.6-35.5); Mean Corpuscular Hemoglobin 26.4 pg (28.0-33.3); Mean Corpuscular Volume 84.3 fL (83.0-100.0); Mean Platelet Volume 9.7 fL (9.4-12.4); Monocytes # 0.6 K/mcL (0.0-1.3); Monocytes % 9.8 %; Neutrophils # 3.2 K/mcL (1.6-8.9); Platelet Count 429 K/mcL (140-400); Red Blood Count 4.32 M/mcL (4.19-5.50); Red Cell Distribution Width 14.2 % (11.5-14.5); Segmented Neutrophils % 51.2 %; White Blood Count 6.2 K/mcL (4.3-11.1)
[2019-06-04 06:23] LABS: BUN/Creatinine Ratio 14 (6-26); Blood Urea Nitrogen 12 mg/dL (6-20); Calcium 9.2 mg/dL (8.6-10.3); Carbon Dioxide 27 mEq/L (23-29); Chloride 101 mEq/L (98-107); Glucose 155 mg/dL (70-105); Osmolality,Calculated 291 (280-300); Potassium 4.2 mEq/L (3.5-5.1); Sodium 139 mEq/L (136-145); eGFR For African Americans > 60 (> 60); eGFR For Non-African Americans > 60 (> 60)
[2019-06-04] MEDS: Insulin LISPRO 300 UNITS/3 ML VIAL SQ SCH ×4 (08:34→20:27)
[2019-06-04] MEDS: Nicotine 14 MG PATCH.TD24 TD SCH (08:53)
[2019-06-04] MEDS: Gabapentin 300 MG CAPSULE PO SCH ×3 (08:54→20:26)
--- NOTE | 2019-06-04 10:54 | Infectious Disease Progress No ---
ID Progress Note Date of Encounter: 06/04/19 Time of Encounter: 10:51 - Subjective Subjective: Patient seen and examined. No acute events overnight. Patient reports mild pain in his left foot, rated 8 out of 10. Denies fevers, chills, or rigors. Denies chest pain, shortness of breath, or cough. Denies nausea, vomiting, diarrhea, or constipation. Denies abdominal pain or urinary complaints. Denies oral thrush or skin rashes. States his appetite is good. Reports his last bowel movement was this morning. - Objective CBC & Chem 7: 06/05/19 04:50 06/05/19 04:50 - Exam Vitals: Temp Pulse Resp BP Pulse Ox 98.5 F 73 17 137/83 97 06/04/19 06:43 06/04/19 06:43 06/04/19 06:43 06/04/19 06:43 06/04/19 06:43 Exam: Head: Atraumatic, normal inspection, normocephalic. Eye: EOMI, PERRLA, no scleral icterus noted. ENT: Mucous membranes moist. No odontogenic infection noted. Neck: Normal inspection, no meningismus. Respiratory: Clear to auscultation. No rales, respiratory distress, rhonchi, or wheezes noted. Cardiovascular: Regular rate and rhythm, S1 and S2 audible. No murmurs, rubs, or gallops. GI: Soft, nondistended, normal bowel sounds. Extremities:No joint swelling, pedal edema, or tenderness noted. Left foot dressing with small amount of old bloody drainage noted to the plantar aspect. 1+ pitting edema noted to the left lower extremity. Neurological: Alert, oriented 3, no focal deficits. Psychiatric: normal affect, normal mood. Skin: Dry, intact, warm. Normal color. No rashes. - Assessment and Plan (1) Osteomyelitis Status: Acute Location: Left hallux. Causative organism: MSSA, E. coli, P. hauseri, M. morgannii, K. oxytoca. Secondary to chronic diabetic foot ulcer. CT of the left foot showed cortical irregularity of the 1st distal phalanx tuft MRI of the left foot showed OM of the 1st distal phalanx. Pre-op ESR 93, CRP 60. Podiatry consulted. Status post left hallux amputation 06/02/[address] Joseph. Intraoperative cultures are positive for gram-negative rods 2 and gram-positive cocci. Pathology is pending. Currently on Rocephin. Qualifiers: Osteomyelitis type: subacute Osteomyelitis location: foot Laterality: left Qualified Code(s): M86.272 - Subacute osteomyelitis, left ankle and foot SNOMED Code(s): 28123014 (2) Diabetic ulcer of toe Status: Acute Location: Left great toe. Secondary to traumatic injury about a year ago. Waxing and waning for several months. Podiatry consulted and following. Qualifiers: Diabetes mellitus type: type 2 Laterality: left Non-pressure ulcer stage: with fat layer exposed Qualified Code(s): E11.621 - Type 2 diabetes mellitus with foot ulcer; L97.522 - Non-pressure chronic ulcer of other part of left foot with fat layer exposed SNOMED Code(s): 468027551, 128213171 (3) PAD (peripheral artery disease) Status: Chronic VASQUEZ 05/24/19 right 0.97; left 0.7. TCPO2 monitoring 05/14/19 consistent with healing. Vascular surgery consulted. Status post angiogram with angioplasty of the left SFA 05/30/[address] Joyner. SNOMED Code(s): 523430414, 180770350 (4) Hypertension Status: Acute Qualifiers: Hypertension type: essential hypertension Qualified Code(s): I10 - Essential (primary) hypertension SNOMED Code(s): 74626892 (5) Obesity (BMI 30.0-34.9) Status: Acute SNOMED Code(s): 042233147047060 (6) Depression Status: Chronic Qualifiers: Depression Type: major depressive disorder Major depression recurrence: recurrent Qualified Code(s): F33.0 - Major depressive disorder, recurrent, mild SNOMED Code(s): 36356383 (7) Diabetes mellitus Status: Acute Check hemoglobin A1c. Recommend aggressive glucose monitoring and control to promote wound healing and prevent reinfection. Management per the primary team. 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 Wound care per the podiatry team. Continue Rocephin 2 grams IV daily. Start Flagyl 500 mg by mouth 3 times a day. Duration of treatment depends on the clinical picture. Will plan to do at least two weeks of IV antibiotics post-op per podiatry request. Monitor renal function and dose-adjust antibiotics. creative services manager to assist with discharge planning. Consults vascular access team once final antibiotic regimen has been determined. Consult Discharge Plan - Plan Instructions: Chronic Hypertension (DC) Referrals: Cody Pastrana MD [Primary Care Provider] - 06/17/19 3:15 pm Jackie Reyonlds CNP [Advanced Practice Nurse] - 06/19/19 2:20 pm Derrick Joyner MD [Partnered Physician] - 06/18/19 2:45 pm Prescriptions: metroNIDAZOLE [Flagyl] 500 mg PO TID 15 Days #45 tablet Prescription Printed Clopidogrel [Plavix] 75 mg PO DAILY 15 Days #15 tablet Prescription Printed cefTRIAXone [Rocephin] 2,000 mg IVPB DAILY 15 Days #15 vial Prescription Printed Vancomycin HCl in 5 % Dextrose [Vancomycin 1.75 Gram/500Ml-D5w] 1.75 gm IV Q12HR 15 Days #30 plast..bag Prescription Printed - Attending Attestation I have personally performed a face to face evaluation on this patient. I have reviewed and agree with the care plan. History and Exam by me shows: Assessment and plan: Osteomyelitis left hallux causative organism MSSA, Escherichia coli, Proteus, Morganella and klebsiella status post left hallux amputation 06/02/2019 Diabetic ulcer of toe peripheral artery disease hypertension obesity depression diabetes mellitus REcommendations Await intraoperative cultures and pathology. Wound care per the podiatry team. Continue Rocephin 2 grams IV daily. Start Flagyl 500 mg by mouth 3 times a day. Duration of treatment depends on the clinical picture. Will plan to do at least two weeks of IV antibiotics post-op per podiatry request. Monitor renal function and dose-adjust antibiotics. creative services manager to assist with discharge planning. Consults vascular access team once final antibiotic regimen has been determined.
--- NOTE | 2019-06-04 11:28 | Podiatry Progress Note ---
Date of Encounter: 06/04/19 Time of Encounter: 09:10 - Assessment and Plan (1) Diabetic ulcer of toe Current Visit: Yes Status: Acute Assessment: -Post op day #2 amputation of left hallux by Dr. Joseph on 06/02/2019 -No complications noted -05/14/19 VASQUEZ right 0.97 left 0.7 -s/p Abdominal aortogram, Aortogram with bilateral lower extremity runoff, Standard and drug coated balloon angioplasty of left superficial femoral artery occlusion by Dr. Joyner on 05/30/2019 -05/14/19 TCPO2 consistent with healing -Wound cultures from 05/29/2019 final for Stap. aureus, E. coli, proteus hauseri, morganella aroldo.ssp morganii, and klebsiella oxytoca -Surgical wound cultures preliminary for gram negative rods x 2 and gram positive cocci -Path pending -CT of left foot suggestive for OM -MRI showed OM of distal phalanx -WBC 6.2, afebrile -ESR 93, CRP 60 -HGB A1C 10.7 Plan: -ID onboard, recommendations are greatly appreciated -Limited weight bearing LLE and patient to use surgical shoe for weight bearing LLE -Follow up with Dr. Joseph outpatient in office, please schedule appointment prior to discharge -Dressings changes twice weekly using adaptic, 4x4's, and Kerlix -Social Service to assist with discharge planning -Tight glycemic control per primary team -May discharge patient once cultures are final and ID makes final recommendations Dressing changed: Surgical site flushed with sterile normal saline and pat dry. Painted site with betadine and covered with adaptic, 4x4's, and Kerlix. Secured with medipore tape. Qualifiers: Diabetes mellitus type: type 2 Laterality: left Non-pressure ulcer stage: with fat layer exposed Qualified Code(s): E11.621 - Type 2 diabetes mellitus with foot ulcer; L97.522 - Non-pressure chronic ulcer of other part of left foot with fat layer exposed Subjective Interval history: Patient is post op day #2 amputation left hallux by Dr. Joseph on 06/02/2019. Patient is alert and oriented x 3, no acute distress noted. He is well nourished. Patient denies any chest pain, shortness of breath, or calf pain. He denies any fever, chills, nausea, vomiting, or diarrhea. Objective - Vital Signs Vital Signs: Vital Signs Temp Pulse Resp BP Pulse Ox 06/04/19 06:43 98.5 F 73 17 137/83 97 06/04/19 03:36 98.3 F 76 15 143/95 98 06/03/19 19:21 98.3 F 75 14 141/84 96 06/03/19 15:30 98.3 F 79 17 138/89 94 06/03/19 11:45 98.8 F 75 17 133/85 94 Intake and Output 06/03/19 06/04/19 06/04/19 23:59 07:59 15:59 Intake Total 700 / 1220 360 / 360 Output Total 800 / 1150 Balance -100 / 70 360 / 360 Intake: Oral 700 / 700 360 / 360 Output: Urine 800 / 1150 Other: Meal Breakfast Percent of Meal Consumed 100% # Voids 1 Weight 113 kg Blood Glucose* 144 133 Patient Weight 06/04/19 23:59 Weight 113 kg - Exam Exam: Constitutional: Alert and oriented x 3, well nourished, no acute distress noted Vascular: 1/4 DP/PT pulse LLE, cap refill less than 3 seconds, skin warm from tibia to toes, no pain with calf squeeze Neurological: absent sensation to touch, normal plantar response Dermatological: s/p amputation left hallux, surgical wound without signs of complications noted, sutures intact and edges coapting, dry sanguineous drainage noted to 4x4, mild edema noted to site Musculoskeletal: 4/5 muscle strength and normal tone LLE - Lab Result Diagrams: 06/04/19 05:15 06/04/19 05:15 Labs: Abnormal lab results RBC 3.96 M/mcL (4.19-5.50) L 06/03/19 04:44 Hgb 11.4 g/dL (12.9-16.9) L 06/04/19 05:15 Hct 36.4 % (37.5-50.1) L 06/04/19 05:15 MCH 26.4 pg (28.0-33.3) L 06/04/19 05:15 MCHC 31.3 g/dL (31.6-35.5) L 06/04/19 05:15 RDW 14.7 % (11.5-14.5) H 05/30/19 04:23 Plt Count 429 K/mcL (140-400) H 06/04/19 05:15 MPV 9.2 fL (9.4-12.4) L 06/03/19 04:44 ESR 93 mm/hr (0-10) H 05/30/19 04:23 PT 12.2 Seconds (9.4-12.1) H 05/29/19 20:59 Sodium 134 mEq/L (136-145) L 06/03/19 04:44 Glucose 155 mg/dL (70-105) H 06/04/19 05:15 POC Glucose 144 mg/dL (70-99) H 06/03/19 20:38 C-Reactive Protein 60 mg/L (Less than 10) H 05/30/19 04:23 Vancomycin Trough 13 mcg/mL (5-10) H 06/02/19 02:07 Microbiology, Last 48 Hours 06/02/19 18:58 Surgical Biopsy Culture - Preliminary Left Great Toe Gram Negative Jeff Gram Negative Jeff#2 Gram Positive Cocci 06/02/19 18:58 Anaerobic Culture - Preliminary Left Great Toe Culture is incubating. Consult Discharge Plan - Plan Referrals: Cody Pastrana MD [Primary Care Provider] - 06/17/19 3:15 pm Derrick Joyner MD [Partnered Physician] - 06/18/19 2:45 pm
[2019-06-04] MEDS: *HR* OxyCODONE/APAP 10/325 TABLET PO PRN (11:35)
--- NOTE | 2019-06-04 14:17 | Internal Med Progress Note ---
Hospitalist Progress Note - Encounter Date of Encounter: 06/04/19 Time of Encounter: 14:15 - Subjective Interval History: Patient was seen and examined at bedside today. He denies any acute issues and concerns overnight - Exam Vitals: Temp Pulse Resp BP Pulse Ox 98.5 F 77 17 138/83 99 06/04/19 11:24 06/04/19 11:24 06/04/19 11:24 06/04/19 11:24 06/04/19 11:24 Exam: GENERAL: Not in distress. Alert and Oriented CHEST AND LUNGS: Normal breath sounds, no wheezes or crackles HEART: S1 and S2 normal, no murmurs ABDOMEN: Soft, nontender, no organomegaly SKIN: Normal color, no rashes, no lesions EXTREMITIES: Clean surgical dressing on left foot. NEUROLOGICAL: Normal cognition, normal motor and sensory exam. - Assessment and Plan (1) Diabetic ulcer of toe Current Visit: Yes Status: Acute Assessment and Plan: S/p Left amoutation of distal phalanx of hallux 06/02/2019 Patient on IV antibiotics, Sunday patient will need at least 2 weeks of antibiotic. ID following, await ID input on final antibiotics on discharge. Continue IV Rocephin Oral Flagyl was added by ID team today. Recommend waiting for final culture results of surgical specimen (2) Osteomyelitis Current Visit: Yes Status: Acute Assessment and Plan: As above (3) Diabetes mellitus Current Visit: Yes Status: Acute Assessment and Plan: Blood glucose still uncontrolled (4) Hypertension Current Visit: Yes Status: Acute Assessment and Plan: On home meds (5) Obesity (BMI 30.0-34.9) Current Visit: Yes Status: Acute Assessment and Plan: Patient counseled on weight loss options available. (6) DVT prophylaxis Current Visit: Yes Status: Acute Assessment and Plan: SCD - Time Spent with Patient Total time spent is greater than 50% in coordination of care (as documented) at patient's floor/unit and/or counseling patient: 25 - 35 minutes Plan of Care Discussed with: patient Internal Medicine: Result - Labs CBC & Chem 7: 06/04/19 05:15 06/04/19 05:15 Labs: Short CBC 06/04/19 Range/Units 05:15 WBC 6.2 (4.3-11.1) K/mcL Hgb 11.4 L (12.9-16.9) g/dL Hct 36.4 L (37.5-50.1) % Plt Count 429 H (140-400) K/mcL Neutrophils # 3.2 (1.6-8.9) K/mcL BMP 06/04/19 05:15 Sodium 139 Potassium 4.2 Chloride 101 Carbon Dioxide 27 BUN 12 Creatinine 0.88 Glucose 155 H Calcium 9.2 - ABG Interpretation ABG results: PT/INR, D-dimer PT 12.2 Seconds (9.4-12.1) H 05/29/19 20:59 Consult Discharge Plan - Plan Referrals: Cody Pastrana MD [Primary Care Provider] - 06/17/19 3:15 pm Derrick Joyner MD [Partnered Physician] - 06/18/19 2:45 pm (1) Diabetic ulcer of toe Qualifiers: Diabetes mellitus type: type 2 Laterality: left Non-pressure ulcer stage: with fat layer exposed Qualified Code(s): E11.621 - Type 2 diabetes mellitus with foot ulcer; L97.522 - Non-pressure chronic ulcer of other part of left foot with fat layer exposed (2) Osteomyelitis Qualifiers: Osteomyelitis type: subacute Osteomyelitis location: foot Laterality: left Qualified Code(s): M86.272 - Subacute osteomyelitis, left ankle and foot (3) Diabetes mellitus Qualifiers: Diabetes mellitus type: type 2 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
[2019-06-04] MEDS: cefTRIAXone 2,000 MG in Water for inj. (sterile) 20 ML IVP SCH (14:37)
[2019-06-04] MEDS: metroNIDAZOLE 500 MG TABLET PO SCH ×2 (14:38→20:26)
[2019-06-04] MEDS: Insulin DETEMIR 100 UNIT/ML X5UNITS SQ SCH (20:26)
[2019-06-05] MEDS: *HR* HYDROcodone/Acet 5/325 mg TABLET PO PRN ×2 (04:43→10:50)
[2019-06-05 05:04] LABS: Basophils # 0.1 K/mcL (0.0-0.2); Eosinophils # 0.2 K/mcL (0.0-0.6); Eosinophils % 3.7 %; Hematocrit 35.1 % (37.5-50.1); Hemoglobin 11.4 g/dL (12.9-16.9); Immature Granulocytes % 0.2 % (0-4); Lymphocytes % 32.1 %; Mean Corpuscular HGB Conc 32.5 g/dL (31.6-35.5); Mean Corpuscular Hemoglobin 26.6 pg (28.0-33.3); Mean Corpuscular Volume 81.8 fL (83.0-100.0); Mean Platelet Volume 9.5 fL (9.4-12.4); Monocytes # 0.6 K/mcL (0.0-1.3); Monocytes % 9.6 %; Neutrophils # 3.3 K/mcL (1.6-8.9); Platelet Count 452 K/mcL (140-400); Red Blood Count 4.29 M/mcL (4.19-5.50); Red Cell Distribution Width 14.3 % (11.5-14.5); Segmented Neutrophils % 53.4 %; White Blood Count 6.1 K/mcL (4.3-11.1)
[2019-06-05 05:23] LABS: BUN/Creatinine Ratio 16 (6-26); Blood Urea Nitrogen 13 mg/dL (6-20); Calcium 9.7 mg/dL (8.6-10.3); Carbon Dioxide 24 mEq/L (23-29); Chloride 103 mEq/L (98-107); Glucose 175 mg/dL (70-105); Osmolality,Calculated 282 (280-300); Potassium 4.2 mEq/L (3.5-5.1); Sodium 134 mEq/L (136-145); eGFR For African Americans > 60 (> 60); eGFR For Non-African Americans > 60 (> 60)
[2019-06-05] MEDS: Insulin LISPRO 300 UNITS/3 ML VIAL SQ SCH ×2 (09:00→12:56)
[2019-06-05] MEDS: metroNIDAZOLE 500 MG TABLET PO SCH (09:01)
[2019-06-05] MEDS: Nicotine 14 MG PATCH.TD24 TD SCH (09:02)
[2019-06-05] MEDS: Gabapentin 300 MG CAPSULE PO SCH (09:02)
[2019-06-05] MEDS ORDERED: Lidocaine -MPF 1% 5 ML AMPUL INFILT ONE (09:04)
--- NOTE | 2019-06-05 09:42 | Discharge Summary ---
- NOTES TO OUTPATIENT PROVIDER Notes to Outpatient Provider: Patient was admitted to the hospital for left foot infection. Pt had angioplasty of left superficial femoral artery occlusion done during hospitalization. He also had amputation of left hallux done for osteomyelitis. Patient was placed on Rocephin, vancomycin, and oral Flagyl for discharge for 2 weeks. Follow up with podiatry within 2 weeks. Follow-up with infectious disease within 2 weeks. Orders not resulted at time of discharge: Pending orders 06/02/19 18:58 Culture,Anaerobic [RM] Routine 06/02/19 19:08 Surgical Pathology [PTH] Routine Date of Encounter: 06/05/19 Time of Encounter: 09:38 - Discharge Diagnosis (1) Osteomyelitis Priority: Primary Status: Acute Qualifiers: Osteomyelitis type: subacute Osteomyelitis location: foot Laterality: left Qualified Code(s): M86.272 - Subacute osteomyelitis, left ankle and foot (2) Diabetic ulcer of toe Priority: Secondary Status: Acute Qualifiers: Diabetes mellitus type: type 2 Laterality: left Non-pressure ulcer stage: with fat layer exposed Qualified Code(s): E11.621 - Type 2 diabetes mellitus with foot ulcer; L97.522 - Non-pressure chronic ulcer of other part of left foot with fat layer exposed (3) Diabetes mellitus Priority: Secondary Status: Acute Qualifiers: Diabetes mellitus type: type 2 Diabetes mellitus 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 Carter is a 58 year old male patient was admitted to the hospital for left foot infection. Pt had angioplasty of left superficial femoral artery occlusion done during hospitalization. He also had amputation of left hallux done for osteomyelitis. Patient was placed on Rocephin, vancomycin, and oral Flagyl for discharge for 2 weeks. Follow up with podiatry within 2 weeks. Follow-up with infectious disease within 2 weeks. Surgical biopsy culture grew Klebsiella, Staphylococcus, and enterococcus. Anaerobic culture final report pending. Patient will be discharged on Rocephin, vancomycin, and Flagyl. Discharge discussed with: patient, nurse, social work, case management, home performance consultant - Time Spent with Patient Total time spent providing and/or coordinating discharge services: 45 Time spent: Greater than 30 minutes - Discharge Medications Prescriptions: New metroNIDAZOLE [Flagyl] 500 mg PO TID 15 Days #45 tablet Clopidogrel [Plavix] 75 mg PO DAILY 15 Days #15 tablet cefTRIAXone [Rocephin] 2,000 mg IVPB DAILY 15 Days #15 vial Vancomycin HCl in 5 % Dextrose [Vancomycin 1.75 Gram/500Ml-D5w] 1.75 gm IV Q12HR 15 Days #30 plast..bag Continued Vitamin E 100 unit PO DAILY DULoxetine [Cymbalta] 30 mg PO DAILY Sildenafil Citrate [Revatio] 20 mg PO PRN PRN PRN Reason: Activity Amitriptyline [Elavil] 50 mg PO HS PRN PRN Reason: Sleep Insulin ASPART [Novolog Flexpen] 5 - 10 units SQ ACHS Cholecalciferol (Vitamin D3) [Vitamin D3] 50,000 unit PO TUFR Oxycodone HCl/Acetaminophen [Percocet 10-325 mg Tablet] 1 tab PO Q6H PRN PRN Reason: Mild To Moderate Pain Insulin Lispro Protamin/Lispro [Humalog Mix 75-25 Vial] 45 unit SQ BID Gabapentin [Neurontin] 600 mg PO TID Losartan Potassium 100 mg PO DAILY Albuterol Sulfate [Proventil Inhaler] 1 puff IH Q4-6H PRN PRN Reason: Shortness Of Breath/Wheezing Leucovorin/Pyridox/Mecobalamin [Folinic-Plus Caplet] 1 tab PO DAILY Home Medications: Cholecalciferol (Vitamin D3) [Vitamin D3] 50,000 unit PO TUFR 08/07/17 [History] Oxycodone HCl/Acetaminophen [Percocet 10-325 mg Tablet] 1 tab PO Q6H PRN 08/07/17 [History] Insulin Lispro Protamin/Lispro [Humalog Mix 75-25 Vial] 45 unit SQ BID 08/08/17 [History] Albuterol Sulfate [Proventil Inhaler] 1 puff IH Q4-6H PRN 01/29/19 [History] Gabapentin [Neurontin] 600 mg PO TID 01/29/19 [History] Leucovorin/Pyridox/Mecobalamin [Folinic-Plus Caplet] 1 tab PO DAILY 01/29/19 [History] Losartan Potassium 100 mg PO DAILY 01/29/19 [History] DULoxetine [Cymbalta] 30 mg PO DAILY 05/29/19 [History] Sildenafil Citrate [Revatio] 20 mg PO PRN PRN 05/29/19 [History] Vitamin E 100 unit PO DAILY 05/29/19 [History] Amitriptyline [Elavil] 50 mg PO HS PRN 05/30/19 [History] Insulin ASPART [Novolog Flexpen] 5 - 10 units SQ ACHS 05/30/19 [History] Clopidogrel [Plavix] 75 mg PO DAILY 15 Days #15 tablet 06/05/19 [Rx] Vancomycin HCl in 5 % Dextrose [Vancomycin 1.75 Gram/500Ml-D5w] 1.75 gm IV Q12HR 15 Days #30 plast..bag 06/05/19 [Rx] cefTRIAXone [Rocephin] 2,000 mg IVPB DAILY 15 Days #15 vial 06/05/19 [Rx] metroNIDAZOLE [Flagyl] 500 mg PO TID 15 Days #45 tablet 06/05/19 [Rx] Allergies/Adverse Reactions: Allergy/AdvReac Type Severity Reaction Status Date / Time No Known Allergies Allergy Verified 05/30/19 14:19 Date of admission: 05/29/19 22:26 Primary care physician: Cody Pastrana MD Consults: 05/29/19 22:04 Consult to Podiatry [CONS] Routine Consulting Provider: [facility] Reason for Consult: possible Osteomyelitis. Current patient of [facility]. Call Completed: No 05/30/19 06:00 Consult to Wound Care [CONS] Routine Reason for Consult: left hallux Call Completed: No 05/30/19 11:50 Consult to Vascular Surgery [CONS] Routine Consulting Provider: [facility] Reason for Consult: Abnormal VASQUEZ/ulceration Time Notified: 11:51 Call Completed: Yes 06/03/19 09:11 Consult to Infectious Diseases [CONS] Routine Consulting Provider: [facility] Reason for Consult: Left hallux osteomyelitis on vanc and zosyn. Had digit amputation yesterday. Recommednations on antibiotics for DC. thanks Call Completed: No 06/05/19 09:04 Consult to Invasive Line Access Team [CONS] Routine Reason for Consult: Picc Line Insertion Line Type: PICC PICC line indications: long term Med/Antibiotic Time Notified: 09:05 Call Completed: Yes Discharging clinician: Aries Quesada - Constitutional Vitals: Temp Pulse Resp BP Pulse Ox 98.1 F 68 14 156/84 96 06/05/19 07:21 06/05/19 07:21 06/05/19 07:21 06/05/19 07:21 06/05/19 07:21 General appearance: Present: cooperative, A&O X 3 Exam: GENERAL: Not in distress. Alert and Oriented CHEST AND LUNGS: Normal breath sounds, no wheezes or crackles HEART: S1 and S2 normal, no murmurs ABDOMEN: Soft, nontender, no organomegaly SKIN: Normal color, no rashes, no lesions EXTREMITIES: Clean surgical dressing on left foot. NEUROLOGICAL: Normal cognition, normal motor and sensory exam. - Patient Status Disposition: Home Health Service Condition: Good Functional capacity at discharge: uses cane/walker Overall status at discharge: patient is progressing back to baseline - Discharge Instructions Follow Up With: Cody Pastrana MD [Primary Care Provider] - 06/17/19 3:15 pm Derrick Joyner MD [Partnered Physician] - 06/18/19 2:45 pm - Diet and Activity Activity: increase activity as tolerated Diet: diabetic diet, low salt diet
--- NOTE | 2019-06-05 09:56 | Physician Discharge Referral ---
Home Health/Hosp Referral Info Transfer to: Home Health Provider in Charge Post Discharge: PCP - Diagnosis (1) Osteomyelitis Priority: Primary Status: Acute (2) Diabetic ulcer of toe Priority: Secondary Status: Acute (3) Diabetes mellitus Priority: Secondary Status: Acute (4) Hypertension Priority: Secondary Status: Acute (5) Obesity (BMI 30.0-34.9) Priority: Secondary Status: Acute (6) DVT prophylaxis Priority: Secondary Status: Acute - Respiratory Orders Smoking Cessation: Smoking cessation has been advised. For more information, call the [employer] Tobacco Quit Line at 7-299-HQIH-NOW. - Dressing/Wound Care Site: Left foot Type of Dressing/Treatments w/Frequency: Daily left foot dressing. Please flush the site with normal saline. Apply betadine and covered with adaptic, 4x4's, and Kerlix. Please secured with with medipore tape. - Diet/Nutrition Diet/Nutrition Orders: Cardiac - Activity Activity Orders: Ambulate - Services Needed Following services are medically necessary services: Nursing, Home Health Aide, Physical Therapy, Occupational Therapy - Transfer Medications Prescriptions: metroNIDAZOLE [Flagyl] 500 mg PO TID 15 Days #45 tablet Prescription Printed Clopidogrel [Plavix] 75 mg PO DAILY 15 Days #15 tablet Prescription Printed cefTRIAXone [Rocephin] 2,000 mg IVPB DAILY 15 Days #15 vial Prescription Printed Vancomycin HCl in 5 % Dextrose [Vancomycin 1.75 Gram/500Ml-D5w] 1.75 gm IV Q12HR 15 Days #30 plast..bag Prescription Printed Home Medications: Cholecalciferol (Vitamin D3) [Vitamin D3] 50,000 unit PO TUFR 08/07/17 [History] Oxycodone HCl/Acetaminophen [Percocet 10-325 mg Tablet] 1 tab PO Q6H PRN 08/07/17 [History] Insulin Lispro Protamin/Lispro [Humalog Mix 75-25 Vial] 45 unit SQ BID 08/08/17 [History] Albuterol Sulfate [Proventil Inhaler] 1 puff IH Q4-6H PRN 01/29/19 [History] Gabapentin [Neurontin] 600 mg PO TID 01/29/19 [History] Leucovorin/Pyridox/Mecobalamin [Folinic-Plus Caplet] 1 tab PO DAILY 01/29/19 [History] Losartan Potassium 100 mg PO DAILY 01/29/19 [History] DULoxetine [Cymbalta] 30 mg PO DAILY 05/29/19 [History] Sildenafil Citrate [Revatio] 20 mg PO PRN PRN 05/29/19 [History] Vitamin E 100 unit PO DAILY 05/29/19 [History] Amitriptyline [Elavil] 50 mg PO HS PRN 05/30/19 [History] Insulin ASPART [Novolog Flexpen] 5 - 10 units SQ ACHS 05/30/19 [History] Clopidogrel [Plavix] 75 mg PO DAILY 15 Days #15 tablet 06/05/19 [Rx] Vancomycin HCl in 5 % Dextrose [Vancomycin 1.75 Gram/500Ml-D5w] 1.75 gm IV Q12HR 15 Days #30 plast..bag 06/05/19 [Rx] cefTRIAXone [Rocephin] 2,000 mg IVPB DAILY 15 Days #15 vial 06/05/19 [Rx] metroNIDAZOLE [Flagyl] 500 mg PO TID 15 Days #45 tablet 06/05/19 [Rx] Allergies/Adverse Reactions: Allergy/AdvReac Type Severity Reaction Status Date / Time No Known Allergies Allergy Verified 05/30/19 14:19 Certification: Further, I certify that my clinical findings support that this patient is homebound (i.e. absences from home require considerable and taxing effort and are for medical reasons or anabaptist services or infrequently or short duration when for other reasons) because: Homebound Reason: Patient requires assistance of a person or device to safely leave home Attestation: My signature below is to certify that this patient is under my care and that I, or nurse practitioner, or a physician's dermatology physician assistant working with me, has a [id number] encounter with this patient.
[2019-06-05] MEDS ORDERED: Vancomycin 1,750 MG in 0.9 % Sodium Chloride 250 ML IVPB SCH (10:00)
[2019-06-05 11:19] VITALS: BP 146/88
--- NOTE | 2019-06-05 11:54 | Infectious Disease Progress No ---
ID Progress Note Date of Encounter: 06/05/19 Time of Encounter: 11:52 - Subjective Subjective: Patient seen and examined. No acute events overnight. Patient denies pain in his foot. Reports some lower back pain this morning that has resolved with PO pain medication. Denies fevers, chills, or rigors. Denies chest pain, shortness of breath, or cough. Denies nausea, vomiting, diarrhea, or constipation. Denies abdominal pain or urinary complaints. Denies oral thrush or skin rashes. States his appetite is good. Reports his last bowel movement was this morning. - Objective CBC & Chem 7: 06/05/19 04:50 06/05/19 04:50 - Exam Vitals: Temp Pulse Resp BP Pulse Ox 98.2 F 68 14 146/88 96 06/05/19 11:16 06/05/19 11:16 06/05/19 11:16 06/05/19 11:16 06/05/19 11:16 Exam: Head: Atraumatic, normal inspection, normocephalic. Eye: EOMI, PERRLA, no scleral icterus noted. ENT: Mucous membranes moist. No odontogenic infection noted. Neck: Normal inspection, no meningismus. Respiratory: Clear to auscultation. No rales, respiratory distress, rhonchi, or wheezes noted. Cardiovascular: Regular rate and rhythm, S1 and S2 audible. No murmurs, rubs, or gallops. GI: Soft, nondistended, normal bowel sounds. Extremities:No joint swelling, pedal edema, or tenderness noted. Left foot dressing C/D/I. 1+ pitting edema noted to the left lower extremity. Neurological: Alert, oriented 3, no focal deficits. Psychiatric: normal affect, normal mood. Skin: Dry, intact, warm. Normal color. No rashes. - Assessment and Plan (1) Osteomyelitis Current Visit: Yes Status: Acute Location: Left hallux. Causative organism: MSSA, E. coli, P. hauseri, M. morgannii, K. oxytoca, and E. faecalis. Secondary to chronic diabetic foot ulcer. CT of the left foot showed cortical irregularity of the 1st distal phalanx tuft MRI of the left foot showed OM of the 1st distal phalanx. Pre-op ESR 93, CRP 60. Podiatry consulted. Status post left hallux amputation 06/02/[address] Joseph. Intraoperative cultures are positive for M. morgannii, K. oxytoca, MSSA, and E. faecalis. Pathology is pending. Currently on Rocephin. Qualifiers: Osteomyelitis type: subacute Osteomyelitis location: foot Laterality: left Qualified Code(s): M86.272 - Subacute osteomyelitis, left ankle and foot SNOMED Code(s): 75221737 (2) Diabetic ulcer of toe Current Visit: Yes Status: Acute Location: Left great toe. Secondary to traumatic injury about a year ago. Waxing and waning for several months. Podiatry consulted and following. Qualifiers: Diabetes mellitus type: type 2 Laterality: left Non-pressure ulcer stage: with fat layer exposed Qualified Code(s): E11.621 - Type 2 diabetes mellitus with foot ulcer; L97.522 - Non-pressure chronic ulcer of other part of left foot with fat layer exposed SNOMED Code(s): 022505992, 197697714 (3) PAD (peripheral artery disease) Current Visit: Yes Status: Chronic VASQUEZ 05/24/19 right 0.97; left 0.7. TCPO2 monitoring 05/14/19 consistent with healing. Vascular surgery consulted. Status post angiogram with angioplasty of the left SFA 05/30/[address] Joyner. SNOMED Code(s): 690245639, 546616356 (4) Hypertension Current Visit: Yes Status: Acute Qualifiers: Hypertension type: essential hypertension Qualified Code(s): I10 - Essential (primary) hypertension SNOMED Code(s): 03426639 (5) Obesity (BMI 30.0-34.9) Current Visit: Yes Status: Acute SNOMED Code(s): 703164126525518 (6) Depression Current Visit: Yes Status: Chronic Qualifiers: Depression Type: major depressive disorder Major depression recurrence: recurrent Qualified Code(s): F33.0 - Major depressive disorder, recurrent, mild SNOMED Code(s): 13493508 (7) Diabetes mellitus Current Visit: Yes Status: Acute Check hemoglobin A1c. Recommend aggressive glucose monitoring and control to promote wound healing and prevent reinfection. Management per the primary team. 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 Wound care per the podiatry team. Continue Rocephin 2 grams IV daily. Continue Flagyl 500 mg by mouth 3 times a day. Start Vancomycin IV. Pharmacy to dose. Goal trough ~15. Duration of treatment depends on the clinical picture. Will plan to do at least two weeks of IV antibiotics post-op per podiatry request. Monitor renal function and dose-adjust antibiotics. director of career services to assist with discharge planning. Consults vascular access team for PICC placement. Will need weekly CBC, BUN/Cr, ESR, CRP, Vanc trough. Will need weekly PICC care per protocol. Follow up with ID 06/19/19 at 1420. Consult Discharge Plan - Plan Referrals: Cody Pastrana MD [Primary Care Provider] - 06/17/19 3:15 pm Derrick Joyner MD [Partnered Physician] - 06/18/19 2:45 pm Jackie Reynolds CNP [Advanced Practice Nurse] - 06/19/19 2:20 pm Prescriptions: metroNIDAZOLE [Flagyl] 500 mg PO TID 15 Days #45 tablet Prescription Printed Clopidogrel [Plavix] 75 mg PO DAILY 15 Days #15 tablet Prescription Printed cefTRIAXone [Rocephin] 2,000 mg IVPB DAILY 15 Days #15 vial Prescription Printed Vancomycin HCl in 5 % Dextrose [Vancomycin 1.75 Gram/500Ml-D5w] 1.75 gm IV Q12HR 15 Days #30 plast..bag Prescription Printed
[2019-06-05] MEDS: cefTRIAXone 2,000 MG in Water for inj. (sterile) 20 ML IVP SCH (12:55)
[2019-06-05] MEDS ORDERED: FLU Vac QV 19-20 (6Month+)/PF 0.5 ML SYRINGE IM ONE (13:07)
[2019-06-05] MEDS ORDERED: Aminoglycoside Consult 1 EACH MC ONE (14:20)
== END 2019-06-05 14:21 | disposition home health service (06) | DRG 314 ==
LOC: 3ANU → SUATTDRO 22:26 → 2NNU 05-30 15:21 → 3ANU 06-02 17:53
PROVIDERS: ADMIT Internal Medicine; ATTEND Family Medicine